=== PATIENT | female | born 1960 | race Caucasian/White ===

== ENCOUNTER 2017-03-22 11:58 | Inpatient (IN) | payer OTHER ==
[2017-03-22] VITALS (11 sets, daily range): BP systolic 138–196; BP diastolic 72–113; PULSE 62–78; RESP 16–23; TEMP 97.5–97.9; O2SAT 96–100
[~2017-03-22] VITALS: Ht 172.7 cm; Wt 74.2 kg
--- NOTE | 2017-03-22 12:24 | PD ---
HPI Chief Complaint: Headache Time Seen by Provider: 12:23 Travel History International Travel<30 days: No Contact w/Intl Traveler<30days: No Traveled to known affect area: No History of Present Illness HPI 56-year-old female came to the emergency room with history of headache that is progressively worsening for past 1 week. Patient was initially taking Excedrin Migraine for the headache but when she realized that this doesn't feel normal she decided to go to her primary care. There was an MRI ordered by the primary care which was done this morning and the radiologist called the primary care to let her know that there is a large mass in her left hemisphere with associated edema and midline shift. She was sent to the emergency room because of this. Patient denies any unilateral weakness or focal deficits. She otherwise claims to be a healthy person. [facility] Past Medical History Narrative Medical List of her past medical, surgical, social and family history is reviewed from the nursing note. Social History Tobacco Use: Yes Allergies-Medications (Allergen,Severity, Reaction): Coded Allergies: No Known Allergies (Verified Allergy, Unknown, 03/22/17) Comments No known drug allergies. Reported Meds & Prescriptions Reported Meds & Active Scripts Active No Active Prescriptions or Reported Medications Narrative Medication List of her home medications reviewed from the nursing note. Review of Systems Except as stated in HPI: all other systems reviewed are Neg Neurologic: Positive: Headache Physical Exam Narrative GENERAL: Awake, alert, anxious, moderate distress SKIN: Focused skin assessment warm/dry. HEAD: Atraumatic. Normocephalic. EYES: Pupils equal and round. No scleral icterus. No injection or drainage. ENT: No nasal bleeding or discharge. Mucous membranes pink and moist. NECK: Trachea midline. No JVD. CARDIOVASCULAR: Regular rate and rhythm. No murmur appreciated. RESPIRATORY: No accessory muscle use. Clear to auscultation. Breath sounds equal bilaterally. GASTROINTESTINAL: Abdomen soft, non-tender, nondistended. Hepatic and splenic margins not palpable. MUSCULOSKELETAL: No obvious deformities. No clubbing. No cyanosis. No edema. NEUROLOGICAL: Awake and alert. No obvious cranial nerve deficits. Motor grossly within normal limits. Normal speech. PSYCHIATRIC: Appropriate mood and affect; insight and judgment normal. Data Data Last Documented VS Vital Signs Date Time Temp Pulse Resp B/P (MAP) Pulse Ox O2 Delivery O2 Flow Rate FiO2 03/22/17 14:10 97.8 70 16 150/81 (104) 98 Room Air Orders Orders Complete Blood Count With Diff (03/22/17 12:26) Basic Metabolic Panel (Bmp) (03/22/17 12:26) Prothrombin Time / Inr (Pt) (03/22/17 12:26) Type And Screen (03/22/17 12:26) Dexamethasone Inj (Decadron Inj) (03/22/17 12:30) Application Support / Telemetry [id number] (03/22/17 12:26) Consult Neurosurgery (03/22/17 ) (Hub Use Only)Inp Phy Cons/Ref (03/22/17 ) Admit Order (Ed Use Only) (03/22/17 14:09) Labs Laboratory Tests Test 03/22/17 12:30 White Blood Count 6.8 TH/MM3 Red Blood Count 4.61 MIL/MM3 Hemoglobin 14.1 GM/DL Hematocrit 41.9 % Mean Corpuscular Volume 90.7 FL Mean Corpuscular Hemoglobin 30.6 PG Mean Corpuscular Hemoglobin Concent 33.7 % Red Cell Distribution Width 13.3 % Platelet Count 322 TH/MM3 Mean Platelet Volume 8.1 FL Neutrophils (%) (Auto) 69.9 % Lymphocytes (%) (Auto) 22.1 % Monocytes (%) (Auto) 7.2 % Eosinophils (%) (Auto) 0.3 % Basophils (%) (Auto) 0.5 % Neutrophils # (Auto) 4.8 TH/MM3 Lymphocytes # (Auto) 1.5 TH/MM3 Monocytes # (Auto) 0.5 TH/MM3 Eosinophils # (Auto) 0.0 TH/MM3 Basophils # (Auto) 0.0 TH/MM3 CBC Comment DIFF FINAL Differential Comment Prothrombin Time 10.7 SEC Prothromb Time International Ratio 1.1 RATIO Blood Urea Nitrogen 15 MG/DL Creatinine 0.85 MG/DL Random Glucose 88 MG/DL Calcium Level 9.4 MG/DL Sodium Level 138 MEQ/L Potassium Level 4.0 MEQ/L Chloride Level 103 MEQ/L Carbon Dioxide Level 25.5 MEQ/L Anion Gap 10 MEQ/L Estimat Glomerular Filtration Rate 69 ML/MIN MDM Medical Decision Making Medical Screen Exam Complete: Yes Emergency Medical Condition: Yes Medical Record Reviewed: Yes Interpretation(s) Twelve-lead EKG was reviewed by me. Normal sinus rhythm, normal axis, nonspecific ST-T wave changes. Heart rate of 62 bpm. Differential Diagnosis Intracranial mass Narrative Course 1:38 PM I looked at her MRI report after patient arrived to the ER based on which I called Dr. Winston who is on-call for neurosurgery. He was in the OR. He wanted his PA to be called. She has been contacted as well. Neither of them has seen the patient yet. My understanding is that they're on their way to come and see the patient. Blood test results of back and within acceptable limits. Patient will require admission once they have evaluated her. 2:[address] Winston came downstairs and saw the patient. He wants the patient to be admitted to [facility]. I discussed the case with Dr. Holland from [facility] who will admit the patient. Procedures EKG Prior to Arrival: No Physician Communication Physician Communication Dr. Winston, Dr. Holland Diagnosis Primary Impression: Intracranial mass Additional Impression: Headache Qualified Codes: R51 - Headache Admitting Information Admitting Physician Requests: Admit Scripts No Active Prescriptions or Reported Meds Kadie Harris MD Mar 22, 2017 12:24
[2017-03-22] MEDS ORDERED: DEXAMETHASONE SOD PHOS 20 MG/5 ML VIAL IV PUSH ONE (12:30)
[2017-03-22 12:55] LABS: AUTOMATED NEUTROPHIL # 4.8 TH/MM3 (1.8-7.7); BASOPHIL % 0.5 % (0.0-2.0); EOSINOPHIL % 0.3 % (0.0-4.0); HEMATOCRIT 41.9 % (35.0-46.0); HEMOGLOBIN 14.1 GM/DL (11.6-15.3); LYMPH % 22.1 % (9.0-44.0); LYMPHOCYTE # 1.5 TH/MM3 (1.0-4.8); MEAN CELL VOLUME 90.7 FL (80.0-100.0); MEAN CORPUSCULAR HEMOGLOBIN 30.6 PG (27.0-34.0); MEAN CORPUSCULAR HGB CONC 33.7 % (32.0-36.0); MEAN PLATELET VOLUME 8.1 FL (7.0-11.0); MONO % 7.2 % (0.0-8.0); MONOCYTE # 0.5 TH/MM3 (0-0.9); NEUT % 69.9 % (16.0-70.0); PLATELET COUNT 322 TH/MM3 (150-450); RED BLOOD COUNT 4.61 MIL/MM3 (4.00-5.30); RED CELL DISTRIBUTION WIDTH 13.3 % (11.6-17.2); WHITE BLOOD COUNT 6.8 TH/MM3 (4.0-11.0)
[2017-03-22 13:05] LABS: BICARBONATE 25.5 MEQ/L (21.0-32.0); CALCIUM 9.4 MG/DL (8.5-10.1); CREATININE 0.85 MG/DL (0.50-1.00); INTERNATIONAL NORMALIZED RATIO 1.1 RATIO; PROTHROMBIN TIME - PATIENT 10.7 SEC (9.8-11.6)
--- NOTE | 2017-03-22 13:58 | PD.CONS ---
(Singh Winston MD) HPI Consult Requested By Primary Care Physician Unknown (Singh Winston MD) Service Neurosurgery Reason for Consult Brain Mass History of Present Illness Ms. Cloud is a 56-year-old female who was sent to [place] the ED for brain mass. Apparently she has had progressive worsening of headaches with associated nausea. She underwent a CT head at [facility] which shows a mass in the left parieto-occipital low to mid convexity region with moderate vasogenic edema extending into the high convexity frontal and parietal regions and anteriorly into the temporal region. There is moderate global mass effect present with significant effacement and displacement of left lateral ventricle and about 6 mm of subfalcine midline shift. Unfortunately she is unable to undergo an MRI study due to her pacemaker. She reports no prior history of known tumors or cancers and is quite healthy otherwise. (Kacy Vargas) Review of Systems Constitutional: DENIES: Fever, Chills Gastrointestinal: COMPLAINS OF: Nausea Genitourinary: DENIES: Urinary incontinence Neurologic: COMPLAINS OF: Headache, DENIES: Seizures (Kacy Vargas) Past Family Social History Allergies: Coded Allergies: No Known Allergies (Verified Allergy, Unknown, 03/22/17) Reported Medications Current Medications Dexamethasone Sodium Phosphate (Decadron Inj) 10 mg ONCE ONCE IV PUSH Last administered on 03/22/17at 12:33; Start 03/22/17 at 12:30; Stop 03/22/17 at 12:31 ; Status DC Potassium Chloride/Sodium Chloride 1,000 ml @ 100 mls/hr Q10H IV Last administered on 03/22/17at 14:53; Start 03/22/17 at 14:13 Sodium Chloride (NS Flush) 2 ml UNSCH PRN IV FLUSH FLUSH AFTER USING IV ACCESS ; Start 03/22/17 at 14:15 Sodium Chloride (NS Flush) 2 ml BID IV FLUSH ; Start 03/22/17 at 21:00 Acetaminophen (Tylenol) 650 mg Q6H PRN PO FEVER >101F; Start 03/22/17 at 14:15 Acetaminophen/ Hydrocodone Bitart (Davis 5-325 Mg) 1 tab Q4H PRN PO PAIN SCALE 1 TO 5; Start 03/22/17 at 14:15 Morphine Sulfate (Morphine Inj) 2 mg Q2H PRN IV PUSH PAIN SCALE 6 TO 10 Last administered on 03/22/17at 14:53; Start 03/22/17 at 14:15 Famotidine (Pepcid) 20 mg Q12HR PO Last administered on 03/22/17at 14:53; Start 03/22/17 at 14:15 Ondansetron HCl (Zofran Inj) 4 mg Q6H PRN IV PUSH NAUSEA OR VOMITING Last administered on 03/22/17at 15:24; Start 03/22/17 at 14:15 Zolpidem Tartrate (Ambien) 5 mg HS PRN PO INSOMNIA; Start 03/22/17 at 14:15 Albuterol/ Ipratropium (Duoneb Neb) 1 ampule Q2HR NEB PRN INH WHEEZING; Start 03/22/17 at 14:15 Miscellaneous Information 1 Q361D XX Last administered on 03/22/17at 16:54; Start 03/22/17 at 14:15 Chlorhexidine Gluconate (Chlorhexidine 2% Cloth) 3 pack Taper DAILY@04 TOP ; Start 03/23/17 at 04:00; Stop 03/19/18 at 03:59 Chlorhexidine Gluconate (Chlorhexidine 2% Cloth) 3 pack UNSCH PRN TOP HYGIENIC CARE; Start 03/22/17 at 14:15 Senna/Docusate Sodium (Melissa-Colace) 1 tab BID PO ; Start 03/22/17 at 21:00 Magnesium Hydroxide (Milk Of Magnesia Liq) 30 ml Q12H PRN PO Mild constipation ; Start 03/22/17 at 14:15 Sennosides (Senokot) 17.2 mg Q12H PRN PO Moderate constipation; Start 03/22/17 at 14:15 Bisacodyl (Dulcolax Supp) 10 mg DAILY PRN RECTAL SEVERE CONSITIPATION; Start at 14:15 Lactulose (Lactulose Liq) 30 ml DAILY PRN PO SEVERE CONSITIPATION; Start at 14:15 Levetriacetam 500 mg/Sodium Chloride 105 ml @ 420 mls/hr Q12H IV Last administered on 03/22/17at 15:24; Start 03/22/17 at 15:00 Mannitol (Mannitol Inj) 25 gm Q6HR IV ; Start 03/22/17 at 18:00 Dexamethasone Sodium Phosphate (Decadron Inj) 4 mg Q6HR IV PUSH ; Start at 18:00 (Singh Winston MD) Past Medical History Remote history of syncope, underwent pacemaker Past Surgical History Pacemaker Active Ordered Medications Current Medications Medications (Trade) Dose Ordered Sig/Rebecca Route PRN Reason Start Time Stop Time Status Last Admin Dose Admin Potassium Chloride/Sodium Chloride 1,000 ml @ 100 mls/hr Q10H IV 03/22/17 14:13 03/22/17 14:53 Sodium Chloride (NS Flush) 2 ml UNSCH PRN IV FLUSH FLUSH AFTER USING IV ACCESS 03/22/17 14:15 Sodium Chloride (NS Flush) 2 ml BID IV FLUSH 03/22/17 21:00 Acetaminophen (Tylenol) 650 mg Q6H PRN PO FEVER >101F 03/22/17 14:15 Acetaminophen/ Hydrocodone Bitart (Davis 5-325 Mg) 1 tab Q4H PRN PO PAIN SCALE 1 TO 5 03/22/17 14:15 Morphine Sulfate (Morphine Inj) 2 mg Q2H PRN IV PUSH PAIN SCALE 6 TO 10 03/22/17 14:15 03/22/17 14:53 Famotidine (Pepcid) 20 mg Q12HR PO 03/22/17 14:15 03/22/17 14:53 Ondansetron HCl (Zofran Inj) 4 mg Q6H PRN IV PUSH NAUSEA OR VOMITING 03/22/17 14:15 03/22/17 15:24 Zolpidem Tartrate (Ambien) 5 mg HS PRN PO INSOMNIA 03/22/17 14:15 Albuterol/ Ipratropium (Duoneb Neb) 1 ampule Q2HR NEB PRN INH WHEEZING 03/22/17 14:15 Miscellaneous Information 1 Q361D XX 03/22/17 14:15 03/22/17 16:54 Chlorhexidine Gluconate (Chlorhexidine 2% Cloth) 3 pack Taper DAILY@04 TOP 03/23/17 04:00 03/19/18 03:59 Chlorhexidine Gluconate (Chlorhexidine 2% Cloth) 3 pack UNSCH PRN TOP HYGIENIC CARE 03/22/17 14:15 Senna/Docusate Sodium (Melissa-Colace) 1 tab BID PO 03/22/17 21:00 Magnesium Hydroxide (Milk Of Magnesia Liq) 30 ml Q12H PRN PO Mild constipation 03/22/17 14:15 Sennosides (Senokot) 17.2 mg Q12H PRN PO Moderate constipation 03/22/17 14:15 Bisacodyl (Dulcolax Supp) 10 mg DAILY PRN RECTAL SEVERE CONSITIPATION 03/22/17 14:15 Lactulose (Lactulose Liq) 30 ml DAILY PRN PO SEVERE CONSITIPATION 03/22/17 14:15 Levetriacetam 500 mg/Sodium Chloride 105 ml @ 420 mls/hr Q12H IV 03/22/17 15:00 03/22/17 15:24 Mannitol (Mannitol Inj) 25 gm Q6HR IV 03/22/17 18:00 Dexamethasone Sodium Phosphate (Decadron Inj) 4 mg Q6HR IV PUSH 03/22/17 18:00 Social History denies tobacco, etoh, or illicit drug use (Kacy Vargas) Physical Exam Vital Signs Vital Signs Date Time Temp Pulse Resp B/P (MAP) Pulse Ox O2 Delivery O2 Flow Rate FiO2 03/22/17 12:47 97.9 62 16 138/97 (111) 100 Room Air 03/22/17 12:29 97.8 67 16 181/113 (135) 100 Room Air 03/22/17 12:26 69 16 100 Room Air 03/22/17 12:00 97.5 64 18 196/112 (140) 100 Physical Exam The patient is alert, awake and oriented to time, place and person. Speech is fluent. Higher cognitive functions are normal. Cranial nerve examination demonstrates the pupils to be equal, round, and reactive to light. Extra-ocular movements are intact. Facial motor and sensory function are normal and symmetrical. Gross hearing is intact, bilaterally. The uvula is midline and elevates symmetrically with the soft palate. Sternocleidomastoid and trapezius muscles have normal and symmetrical strength. Other cranial nerves are intact. Neck is soft and supple. Cervical spine has a full range of motion in anterior flexion, extension, lateral bending, and rotation without pain. There is no tenderness to palpation to the spinous processes or paraspinal muscles. Muscle testing reveals normal bulk and tone overall without rigidity, spasticity , fasciculations, or atrophy. Muscle strength is 5/5 in all muscle groups of both upper extremities including deltoid, biceps, triceps, brachioradialis, wrist extension and cellar packer. In the lower extremities, strength is 5/5 in both iliopsoas, quadriceps, hamstrings, plantar flexion, dorsiflexion, and extensor hallicus longus. Sensory examination is intact to light touch and sharp/dull discrimination in both the upper and lower extremities, symmetrically. Deep tendon reflexes are 2+ and symmetrical in the biceps, triceps, and brachioradialis, bilaterally, in the upper extremities. In the lower extremities , the patellar and Achilles are 2+, bilaterally. There is a bilateral plantar flexion response. Hoffmanns sign is negative. There is no clonus or other abnormal reflexes noted. Cerebellar examination is intact to [id number] test, rapid rhythmic alternating motion. There is no dysmetria, dysdiadochokinesia, truncal ataxia, or tremor. Lungs: clear, nonlabored breathing, no wheezing Heart: S1, S2 Skin: warm and dry, no cyanosis. Laboratory Laboratory Tests Test 03/22/17 12:30 White Blood Count 6.8 Red Blood Count 4.61 Hemoglobin 14.1 Hematocrit 41.9 Mean Corpuscular Volume 90.7 Mean Corpuscular Hemoglobin 30.6 Mean Corpuscular Hemoglobin Concent 33.7 Red Cell Distribution Width 13.3 Platelet Count 322 Mean Platelet Volume 8.1 Neutrophils (%) (Auto) 69.9 Lymphocytes (%) (Auto) 22.1 Monocytes (%) (Auto) 7.2 Eosinophils (%) (Auto) 0.3 Basophils (%) (Auto) 0.5 Neutrophils # (Auto) 4.8 Lymphocytes # (Auto) 1.5 Monocytes # (Auto) 0.5 Eosinophils # (Auto) 0.0 Basophils # (Auto) 0.0 CBC Comment DIFF FINAL Differential Comment Prothrombin Time 10.7 Prothromb Time International Ratio 1.1 Blood Urea Nitrogen 15 Creatinine 0.85 Random Glucose 88 Calcium Level 9.4 Sodium Level 138 Potassium Level 4.0 Chloride Level 103 Carbon Dioxide Level 25.5 Anion Gap 10 Estimat Glomerular Filtration Rate 69 (Singh Winston MD) Result Diagram: 03/22/17 1230 03/22/17 1230 Imaging Last 48 hours Impressions Chest X-Ray 03/22/17 0000 Signed Impressions: Service Date/Time: Wednesday, March 22, 2017 14:39 - CONCLUSION: No acute disease. Kelby Overton MD (Singh Winston MD) Attending Statement I reviewed Ms Cloud clinical and radiological findings. Unfortunately she underwent a CT without contrast which is not an appropriate workup. I recommend she undergoes a CT of the brain with contrast. She is unable to undergo an MRI due to the presence of a pacemaker Have discussed with her and her family the differential diagnosis. I suspect she has a neoplastic process. Depending on the CT with contrast, she may need a CT of the chest abdomen and pelvis if she has an intra-axial mass. In all likelihood she will need additional diagnoses with a stereotactic guided biopsy versus a craniotomy. I would defer further recommendations upon the completion of her CT I ordered decadron 4mg every 6 hrs. In addition I have ordered Mannitol for the vasogenic edema I have ordered serial serum osmolality Pulmonary. aggressive pulmonary toilette, nasotracheal suction, and breathing treatments with nebulizers. Daily PT and OT Nutrition. Tolerating Oral diet Renal. monitor closely urine output, BUN and creatinine Endocrine. Monitor serial Acu checks and SSI as needed in detail ID monitor for signs of infection Protonix for stress ulcer prophylaxis Messi hose and SCD's for DVT prophylaxis Further recommendations will be provided depending on the patient's clinical evaluation and follow up studies. (Singh Winston MD) Singh Winston MD Mar 22, 2017 13:58 Kacy Vargas Mar 22, 2017 17:10
[2017-03-22] MEDS ORDERED: SODIUM CHLORIDE 0.9% FLUSH 10 ML FLUSH IV FLUSH PRN (14:15)
[2017-03-22] MEDS ORDERED: MAGNESIUM HYDROXIDE SUSP 30 ML CUP PO PRN (14:15)
[2017-03-22] MEDS ORDERED: ZOLPIDEM TARTRATE 5 MG TAB PO PRN (14:15)
[2017-03-22] MEDS ORDERED: RESP: ALBUTEROL 2.5 MG/IPRATROPIUM 0.5 MG NEB (PRN) INH (14:15)
[2017-03-22] MEDS ORDERED: SENNOSIDES 8.6 MG TAB PO PRN (14:15)
[2017-03-22] MEDS ORDERED: ACETAMINOPHEN 325 MG TAB PO PRN (14:15)
[2017-03-22] MEDS ORDERED: CHLORHEXIDINE GLUCONATE 2 % 1 PACK (2 CLOTHS) TOP PRN (14:15)
[2017-03-22] MEDS ORDERED: MISCELLANEOUS NURSING INFORMATION XX SCH (14:15)
[2017-03-22] MEDS ORDERED: BISACODYL 10 MG SUPP RECTAL PRN (14:15)
[2017-03-22] MEDS: MORPHINE SULFATE 4 MG/ML INJ IV PUSH PRN (14:53)
[2017-03-22] MEDS: FAMOTIDINE 20 MG TAB PO SCH ×2 (14:53→20:26)
[2017-03-22] MEDS: NS + KCL 20 MEQ INJ 1,000 ML IV SCH (14:53)
[2017-03-22] MEDS: levETIRAcetam INJ 500 MG in SODIUM CHLORIDE 0.9% INJ 100 ML IV SCH (15:24)
[2017-03-22] MEDS: ONDANSETRON HCL 4 MG/2 ML VIAL IV PUSH PRN (15:24)
--- NOTE | 2017-03-22 16:04 | RADRPT ---
EXAM DATE/TIME: 03/22/2017 14:39 [facility] COMPARISON: No previous studies available for comparison. INDICATIONS : Intracranial mass findings. Metastases. MEDICAL HISTORY : None. SURGICAL HISTORY : Pacemaker. ENCOUNTER: Initial ACUITY: 1 day PAIN SCORE: 0/10 LOCATION: Bilateral chest FINDINGS: A single view of the chest demonstrates the lungs to be symmetrically aerated without evidence of mas s, infiltrate or effusion. The cardiomediastinal contours are unremarkable. Left-sided pacemaker wit h 2 intact leads. Osseous structures are intact. CONCLUSION: No acute disease. Kelby Overton MD on March 22, 2017 at 16:01 Board Certified Radiologist. This report was verified electronically.
--- NOTE | 2017-03-22 17:48 | HHI.HP ---
HPI Service Critical Care Medicine Primary Care Physician Dennise Robb MD Admission Diagnosis intracranial mass Diagnosis: Chief Complaint: Headache, brain mass Travel History International Travel<30 Days: No Contact w/Intl Traveler <30 Da: No Traveled to Known Affected Are: No History of Present Illness 56-year-old female came to the emergency room with history of headache that is progressively worsening for past 1 week. Patient was initially taking Excedrin Migraine for the headache but when she realized that this doesn't feel normal she decided to go to her primary care. There was an MRI ordered by the primary care which was done this morning and the radiologist called the primary care to let her know that there is a large mass in her left hemisphere with associated edema and midline shift. She was sent to the emergency room because of this. Patient denies any unilateral weakness or focal deficits. She otherwise claims to be a healthy person. Dr. Winston from neurosurgery was contacted and requested patient be admitted by critical care medicine service. Patient was evaluated by Dr. Winston in the ER. I accepted the patient for admission and evaluated the patient in the ER subsequently. She was resting in the ER stretcher at that time complaining of some headache. She also tells me that she has had problems with her vision over the last 1 week with blurring especially with the right eye. History PFSH Past Medical History Narrative Medical Patient denies any major medical problems previously except for the fact that she had episodes of passing out while she was in [facility] in August 2016 and was taken to the hospital where she had a pacemaker placed. Allergies-Medications (Allergen,Severity, Reaction): Coded Allergies: No Known Allergies (Verified Allergy, Unknown, 03/22/17) Comments No known drug allergies. Reported Meds & Prescriptions Reported Meds & Active Scripts Active No Active Prescriptions or Reported Medications Narrative Medication List of her home medications reviewed from the nursing note. ROS Review of Systems Except as stated in HPI: all other systems reviewed are Neg Neurologic: Positive: Headache, blurring of vision for week Physical Exam Vital Signs Vital Signs Date Time Temp Pulse Resp B/P (MAP) Pulse Ox O2 Delivery O2 Flow Rate FiO2 03/22/17 16:05 97.8 74 16 148/85 (106) 99 03/22/17 16:00 77 03/22/17 15:00 97.9 75 16 150/92 (111) 99 Room Air 03/22/17 14:58 16 03/22/17 14:10 97.8 70 16 150/81 (104) 98 Room Air 03/22/17 12:47 97.9 62 16 138/97 (111) 100 Room Air 03/22/17 12:29 97.8 67 16 181/113 (135) 100 Room Air 03/22/17 12:26 69 16 100 Room Air 03/22/17 12:00 97.5 64 18 196/112 (140) 100 Physical Exam Physical Exam Narrative GENERAL: Awake, alert, anxious, moderate distress SKIN: Focused skin assessment warm/dry. HEAD: Atraumatic. Normocephalic. EYES: Pupils equal and round. No scleral icterus. No injection or drainage. ENT: No nasal bleeding or discharge. Mucous membranes pink and moist. NECK: Trachea midline. No JVD. CARDIOVASCULAR: Regular rate and rhythm. No murmur appreciated. RESPIRATORY: No accessory muscle use. Clear to auscultation. Breath sounds equal bilaterally. GASTROINTESTINAL: Abdomen soft, non-tender, nondistended. Hepatic and splenic margins not palpable. MUSCULOSKELETAL: No obvious deformities. No clubbing. No cyanosis. No edema. NEUROLOGICAL: Awake and alert. Blurring of vision involving right eye. Pupils 4 mm bilaterally reacting actively to light. Motor grossly within normal limits. Normal speech. PSYCHIATRIC: Appropriate mood and affect; insight and judgment normal. Laboratory Laboratory Tests Test 03/22/17 12:30 03/22/17 17:10 White Blood Count 6.8 Red Blood Count 4.61 Hemoglobin 14.1 Hematocrit 41.9 Mean Corpuscular Volume 90.7 Mean Corpuscular Hemoglobin 30.6 Mean Corpuscular Hemoglobin Concent 33.7 Red Cell Distribution Width 13.3 Platelet Count 322 Mean Platelet Volume 8.1 Neutrophils (%) (Auto) 69.9 Lymphocytes (%) (Auto) 22.1 Monocytes (%) (Auto) 7.2 Eosinophils (%) (Auto) 0.3 Basophils (%) (Auto) 0.5 Neutrophils # (Auto) 4.8 Lymphocytes # (Auto) 1.5 Monocytes # (Auto) 0.5 Eosinophils # (Auto) 0.0 Basophils # (Auto) 0.0 CBC Comment DIFF FINAL Differential Comment Prothrombin Time 10.7 Prothromb Time International Ratio 1.1 Blood Urea Nitrogen 15 Creatinine 0.85 Random Glucose 88 Calcium Level 9.4 Sodium Level 138 Potassium Level 4.0 Chloride Level 103 Carbon Dioxide Level 25.5 Anion Gap 10 Estimat Glomerular Filtration Rate 69 Result Diagram: 03/22/17 1230 03/22/17 1230 Imaging Last Impressions Chest X-Ray 03/22/17 0000 Signed Impressions: Service Date/Time: Wednesday, March 22, 2017 14:39 - CONCLUSION: No acute disease. MD Lucas Page VTE Risk Assessment Capjuan j VTE Risk Assessment: Mod/High Risk (score >= 2) VTE Pharm Contraindication: Intracranial lesions Caprini Risk Assessment Model Point Value = 1 Point Value = 2 Point Value = 3 Point Value = 5 Age 41-60 Minor surgery BMI > 25 kg/m2 Swollen legs Varicose veins or History of unexplained or recurrent spontaneous Oral contraceptives or hormone replacement Sepsis (< 1 month) Serious lung disease, including pneumonia (< 1 month) Abnormal pulmonary function Acute myocardial infarction Congestive heart failure (< 1 month) History of inflammatory bowel disease Medical patient at bed rest Age 61-74 Arthroscopic surgery Major open surgery (> 45 min) Laparoscopic surgery (> 45 min) Malignancy Confined to bed (> 72 hours) Immobilizing plaster cast Central venous access Age >= 75 History of VTE Family history of VTE Factor V Leiden Prothrombin [id number] Lupus anticoagulant Anticardiolipin antibodies Elevated serum homocysteine Heparin-induced thrombocytopenia Other congenital or acquired thrombophilia Stroke (< 1 month) Elective arthroplasty Hip, pelvis, or leg fracture Acute spinal cord injury (< 1 month) Prophylaxis Regimen Total Risk Factor Score Risk Level Prophylaxis Regimen 0-1 Low Early ambulation 2 Moderate Order ONE of the following: *Sequential Compression Device (SCD) *Heparin 5000 units SQ BID 3-4 Higher Order ONE of the following medications: *Heparin 5000 units SQ TID *Enoxaparin/Lovenox 40 mg SQ daily (WT < 150 kg, CrCl > 30 mL/min) *Enoxaparin/Lovenox 30 mg SQ daily (WT < 150 kg, CrCl > 10-29 mL/min) *Enoxaparin/Lovenox 30 mg SQ BID (WT < 150 kg, CrCl > 30 mL/min) AND/OR *Sequential Compression Device (SCD) 5 or more Highest Order ONE of the following medications: *Heparin 5000 units SQ TID (Preferred with Epidurals) *Enoxaparin/Lovenox 40 mg SQ daily (WT < 150 kg, CrCl > 30 mL/min) *Enoxaparin/Lovenox 30 mg SQ daily (WT < 150 kg, CrCl > 10-29 mL/min) *Enoxaparin/Lovenox 30 mg SQ BID (WT < 150 kg, CrCl > 30 mL/min) AND *Sequential Compression Device (SCD) Assessment and Plan Assessment and Plan 56-year-old female with: 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 Neurosurgery consulted and patient has already been evaluated by Dr. Winston. Discussed with Dr. Winston personally. Plan for mannitol and Decadron every 6 hourly. Keppra for seizure prophylaxis. Dr. Winston planning brain biopsy following repeat CT head with IV contrast. Patient cannot get MRI brain as she has a pacemaker in place. Cardiovascular: IV hydration, watch for hypotension. Hydralazine as necessary for SBP greater than 1 60 mmHg. Pulmonary: On room air currently. Protecting airway. Bronchodilators as needed. GI/liver: By mouth diet as tolerated Renal/: IV hydration, monitor and replete electro lites, follow BUN/ creatinine. ID: No indication for antibiotics at this time. Heme: Follow CBC Endocrine: SSI for glycemic control as needed Prophylaxis: Pepcid, SCDs. No subcutaneous heparin in view of intracranial mass till cleared by neurosurgery. Discussed with Dr. Winston, discussed with patient's family at bedside. Condition critical with high risk for deterioration due to cerebral edema. Time spent on critical care excluding procedures 45 minutes Jose C Holland MD Mar 22, 2017 17:48
[2017-03-22] MEDS: ACETAMINOPHEN/HYDROcodone 325 MG/5 MG TAB PO PRN (18:19)
[2017-03-22] MEDS: DEXAMETHASONE SOD PHOS 4 MG/ML VIAL IV PUSH SCH (18:20)
[2017-03-22] MEDS: CHLORHEXIDINE GLUCONATE 2 % 1 PACK (2 CLOTHS) TOP SCH (19:21)
[2017-03-22] MEDS: MANNITOL 12.5 GM/50 ML VIAL IV SCH (19:29)
[2017-03-22] MEDS: DOCUSATE SODIUM 50 MG/SENNA 8.6 MG TAB PO SCH (20:26)
[2017-03-22] MEDS: SODIUM CHLORIDE 0.9% FLUSH 10 ML FLUSH IV FLUSH SCH (20:26)
[2017-03-22] MEDS ORDERED: IOHEXOL 350 MG/ML 10 ML VIAL (for RAD DIAG) IVCONTRAST ONE (20:32)
--- NOTE | 2017-03-22 21:12 | RADRPT ---
EXAM DATE/TIME: 03/22/2017 20:11 [facility] COMPARISON: No previous studies available for comparison. INDICATIONS : Mass. IV CONTRAST: 75 cc Omnipaque 350 (iohexol) IV RADIATION DOSE: 17.88 CTDIvol (mGy) MEDICAL HISTORY : Cardiovascular disease. SURGICAL HISTORY : Pacemaker. ENCOUNTER: Initial ACUITY: 1 day PAIN SCALE: 10/10 LOCATION: cranial TECHNIQUE: Multiple contiguous axial images were obtained of the head. Using automated exposure control and adj ustment of the mA and/or kV according to patient size, radiation dose was kept as low as reasonably a chievable to obtain optimal diagnostic quality images. DICOM format image data is available electro nically for review and comparison. FINDINGS: CT Brain Stealth with contrast was performed. The ill-defined enhancing lesion within the left tempor al occipital lobe and posterior parietal region is noted. Extensive vasogenic edema is noted througho ut the left temporal, occipital and posterior parietal region. There is subfalcine herniation to the right measuring 7 mm. CONCLUSION: CT Brain Stealth examination was performed and demonstrates the ill-defined enhancing lesion within t he left temporal occipital and posterior parietal region with extensive vasogenic edema and 7 mm of s ubfalcine herniation to the right. Harrison Gaspar MD on March 22, 2017 at 21:06 Board Certified Radiologist. This report was verified electronically.
[2017-03-23] VITALS (13 sets, daily range): BP systolic 101–138; BP diastolic 57–75; PULSE 54–81; RESP 20–27; TEMP 97.4–97.7; O2SAT 95–99
[2017-03-23] MEDS: MORPHINE SULFATE 4 MG/ML INJ IV PUSH PRN ×4 (02:50→20:24)
[2017-03-23] MEDS: levETIRAcetam INJ 500 MG in SODIUM CHLORIDE 0.9% INJ 100 ML IV SCH ×2 (02:50→15:09)
[2017-03-23] MEDS: NS + KCL 20 MEQ INJ 1,000 ML IV SCH ×3 (02:51→20:23)
[2017-03-23] MEDS: ONDANSETRON HCL 4 MG/2 ML VIAL IV PUSH PRN ×3 (03:25→20:23)
[2017-03-23] MEDS: oxyCODONE/ACETAMINOPHEN 10 MG/325 MG TAB PO PRN ×2 (03:41→11:46)
[2017-03-23 03:54] LABS: AUTOMATED NEUTROPHIL # 5.3 TH/MM3 (1.8-7.7); BASOPHIL % 0.2 % (0.0-2.0); HEMATOCRIT 40.7 % (35.0-46.0); HEMOGLOBIN 13.7 GM/DL (11.6-15.3); LYMPHOCYTE # 0.6 TH/MM3 (1.0-4.8); MEAN CELL VOLUME 90.4 FL (80.0-100.0); MEAN CORPUSCULAR HEMOGLOBIN 30.5 PG (27.0-34.0); MEAN CORPUSCULAR HGB CONC 33.7 % (32.0-36.0); MEAN PLATELET VOLUME 8.5 FL (7.0-11.0); MONO % 1.6 % (0.0-8.0); MONOCYTE # 0.1 TH/MM3 (0-0.9); NEUT % 88.2 % (16.0-70.0); PLATELET COUNT 336 TH/MM3 (150-450); RED BLOOD COUNT 4.51 MIL/MM3 (4.00-5.30); RED CELL DISTRIBUTION WIDTH 13.3 % (11.6-17.2)
[2017-03-23 04:01] LABS: ALBUMIN 3.4 GM/DL (3.4-5.0); ALT (GPT) 18 U/L (10-53); AST (GOT) 11 U/L (15-37); BICARBONATE 25.8 MEQ/L (21.0-32.0); CALCIUM 9.1 MG/DL (8.5-10.1); CHLORIDE 105 MEQ/L (98-107); CREATININE 0.76 MG/DL (0.50-1.00); GLOMERULAR FILTRATION RATE 78 ML/MIN (>89); GLUCOSE,RANDOM 134 MG/DL (74-106); MAGNESIUM 2.2 MG/DL (1.5-2.5); PHOSPHORUS 4.1 MG/DL (2.5-4.9); SODIUM (NA) 139 MEQ/L (136-145)
[2017-03-23 04:07] LABS: ALKALINE PHOSPHATASE 86 U/L (45-117); BLOOD UREA NITROGEN 17 MG/DL (7-18); TOTAL BILIRUBIN ADULT 0.3 MG/DL (0.2-1.0); TOTAL PROTEIN 7.4 GM/DL (6.4-8.2)
[2017-03-23] MEDS: DEXAMETHASONE SOD PHOS 4 MG/ML VIAL IV PUSH SCH ×4 (06:51→17:51)
--- NOTE | 2017-03-23 09:25 | EKG ---
Date Performed: 03/22/2017 Time Performed: 14:53:20 PTAGE: 56 years EKG: Sinus rhythm NONSPECIFIC ST & T-WAVE ABNORMALITY BORDERLINE ECG NO PREVIOUS TRACING DOCTOR: Casey Sewell Interpretating Date/Time 03/23/2017 09:23:08
[2017-03-23] MEDS: SODIUM CHLORIDE 0.9% FLUSH 10 ML FLUSH IV FLUSH SCH ×2 (09:46→20:23)
[2017-03-23] MEDS: MANNITOL 12.5 GM/50 ML VIAL IV SCH ×4 (09:46→20:01)
[2017-03-23] MEDS: FAMOTIDINE 20 MG TAB PO SCH ×2 (09:47→20:23)
[2017-03-23] MEDS: DOCUSATE SODIUM 50 MG/SENNA 8.6 MG TAB PO SCH ×2 (09:47→20:23)
--- NOTE | 2017-03-23 12:52 | HHI.NSPN ---
(Kacy Vargas) Note Status Status: Progress Note (Kacy Vargas) Status: Progress Note (Singh Winston MD) Interval History Interval History Ms. Cloud is a 56-year-old female who was sent to [facility] the ED for brain mass. Apparently she has had progressive worsening of headaches with associated nausea. She underwent a CT head at [facility] which shows a mass in the left parieto-occipital low to mid convexity region with moderate vasogenic edema extending into the high convexity frontal and parietal regions and anteriorly into the temporal region. There is moderate global mass effect present with significant effacement and displacement of left lateral ventricle and about 6 mm of subfalcine midline shift. Unfortunately she is unable to undergo an MRI study due to her pacemaker. She reports no prior history of known tumors or cancers and is quite healthy otherwise. 03/23: CT brain with contrast shows enhancing lesion within the left temporal occipital and posterior parietal region with vasogenic edema and 7 mm midline shift. Her primary care physician Dr. Robb had notified her pacemaker to be MRI compatible. (Kacy Vargas) Labs, Micro, & Vital Signs Results Date Time Temp Pulse Resp B/P (MAP) Pulse Ox O2 Delivery O2 Flow Rate FiO2 03/23/17 08:43 95 21 03/23/17 06:00 68 03/23/17 04:00 74 03/23/17 04:00 97.4 74 20 134/75 (94) 98 03/23/17 02:00 60 03/23/17 00:00 58 03/23/17 00:00 58 20 101/57 (72) 97 03/22/17 22:00 74 03/22/17 20:00 97.9 76 23 161/72 (101) 98 03/22/17 20:00 76 03/22/17 19:56 96 03/22/17 19:00 98 Room Air 03/22/17 18:00 78 03/22/17 16:05 97.8 74 16 148/85 (106) 99 03/22/17 16:00 77 03/22/17 15:00 97.9 75 16 150/92 (111) 99 Room Air 03/22/17 14:58 16 03/22/17 14:10 97.8 70 16 150/81 (104) 98 Room Air 03/22/17 12:47 97.9 62 16 138/97 (111) 100 Room Air 03/24/17 06:59 Intake Total 140 ml Balance 140 ml Constitutional Vital Signs Date Time Temp Pulse Resp B/P (MAP) Pulse Ox O2 Delivery O2 Flow Rate FiO2 03/23/17 08:43 95 21 03/23/17 06:00 68 03/23/17 04:00 74 03/23/17 04:00 97.4 74 20 134/75 (94) 98 03/23/17 02:00 60 03/23/17 00:00 58 03/23/17 00:00 58 20 101/57 (72) 97 03/22/17 22:00 74 03/22/17 20:00 97.9 76 23 161/72 (101) 98 03/22/17 20:00 76 03/22/17 19:56 96 03/22/17 19:00 98 Room Air 03/22/17 18:00 78 03/22/17 16:05 97.8 74 16 148/85 (106) 99 03/22/17 16:00 77 03/22/17 15:00 97.9 75 16 150/92 (111) 99 Room Air 03/22/17 14:58 16 03/22/17 14:10 97.8 70 16 150/81 (104) 98 Room Air 03/22/17 12:47 97.9 62 16 138/97 (111) 100 Room Air 03/24/17 06:59 Intake Total 140 ml Balance 140 ml (Kacy Vargas) Review of Systems Eyes: COMPLAINS OF: Blurred vision, Photosensitivity Neurologic: COMPLAINS OF: Headache (Kacy Vargas) Physical Exam Ms. Cloud is alert, awake and oriented to time, place and person. Speech is fluent. Cranial nerve examination: pupils equal, round, and reactive to light. Extra- ocular movements are intact. Facial motor are normal and symmetrical. Gross hearing is intact, bilaterally. The uvula is midline and elevates symmetrically with the soft palate. Sternocleidomastoid and trapezius muscles have normal and symmetrical strength. Other cranial nerves are intact. Neck is soft and supple. Muscle testing reveals normal bulk and tone. Motor: moves both upper and lower extremities well. Lungs: clear, nonlabored breathing, no wheezing Heart: S1, S2 Skin: warm and dry, no cyanosis. (Kacy Vargas) Ms. Cloud is alert, awake and oriented to time, place and person. Speech is fluent. Cranial nerve examination: pupils equal, round, and reactive to light. Extra- ocular movements are intact. Facial motor are normal and symmetrical. Gross hearing is intact, bilaterally. The uvula is midline and elevates symmetrically with the soft palate. Sternocleidomastoid and trapezius muscles have normal and symmetrical strength. Other cranial nerves are intact. Neck is soft and supple. Muscle testing reveals normal bulk and tone. Motor: moves both upper and lower extremities well. Lungs: clear, nonlabored breathing, no wheezing Heart: S1, S2 Skin: warm and dry, no cyanosis. (Singh Winston MD) Medications Current Medications Current Medications Medications (Trade) Dose Ordered Sig/Rebecca Route PRN Reason Start Time Stop Time Status Last Admin Dose Admin Potassium Chloride/Sodium Chloride 1,000 ml @ 100 mls/hr Q10H IV 03/22/17 14:13 03/23/17 09:52 Sodium Chloride (NS Flush) 2 ml UNSCH PRN IV FLUSH FLUSH AFTER USING IV ACCESS 03/22/17 14:15 Sodium Chloride (NS Flush) 2 ml BID IV FLUSH 03/22/17 21:00 03/23/17 09:46 Acetaminophen (Tylenol) 650 mg Q6H PRN PO FEVER >101F 03/22/17 14:15 Acetaminophen/ Hydrocodone Bitart ([place] 5-325 Mg) 1 tab Q4H PRN PO PAIN SCALE 1 TO 5 03/22/17 14:15 03/22/17 18:19 Morphine Sulfate (Morphine Inj) 2 mg Q2H PRN IV PUSH PAIN SCALE 6 TO 10 03/22/17 14:15 03/23/17 09:51 Famotidine (Pepcid) 20 mg Q12HR PO 03/22/17 14:15 03/23/17 09:47 Ondansetron HCl (Zofran Inj) 4 mg Q6H PRN IV PUSH NAUSEA OR VOMITING 03/22/17 14:15 03/23/17 03:25 Zolpidem Tartrate (Ambien) 5 mg HS PRN PO INSOMNIA 03/22/17 14:15 Albuterol/ Ipratropium (Duoneb Neb) 1 ampule Q2HR NEB PRN INH WHEEZING 03/22/17 14:15 Miscellaneous Information 1 Q361D XX 03/22/17 14:15 03/22/17 16:54 Chlorhexidine Gluconate (Chlorhexidine 2% Cloth) 3 pack Taper DAILY@04 TOP 03/23/17 04:00 03/19/18 03:59 Chlorhexidine Gluconate (Chlorhexidine 2% Cloth) 3 pack UNSCH PRN TOP HYGIENIC CARE 03/22/17 14:15 Senna/Docusate Sodium (Melissa-Colace) 1 tab BID PO 03/22/17 21:00 03/23/17 09:47 Magnesium Hydroxide (Milk Of Magnesia Liq) 30 ml Q12H PRN PO Mild constipation 03/22/17 14:15 Sennosides (Senokot) 17.2 mg Q12H PRN PO Moderate constipation 03/22/17 14:15 Bisacodyl (Dulcolax Supp) 10 mg DAILY PRN RECTAL SEVERE CONSITIPATION 03/22/17 14:15 Lactulose (Lactulose Liq) 30 ml DAILY PRN PO SEVERE CONSITIPATION 03/22/17 14:15 Levetriacetam 500 mg/Sodium Chloride 105 ml @ 420 mls/hr Q12H IV 03/22/17 15:00 03/23/17 02:50 Mannitol (Mannitol Inj) 25 gm Q6HR IV 03/22/17 18:00 03/23/17 09:46 Dexamethasone Sodium Phosphate (Decadron Inj) 4 mg Q6HR IV PUSH 03/22/17 18:00 03/23/17 11:46 Oxycodone/ Acetaminophen (Percocet 10-325 Mg) 1 tab Q4H PRN PO Pain 6-10 03/22/17 18:15 03/23/17 11:46 (Kacy Vargas) Current Medications Current Medications Dexamethasone Sodium Phosphate (Decadron Inj) 10 mg ONCE ONCE IV PUSH Last administered on 03/22/17at 12:33; Start 03/22/17 at 12:30; Stop 03/22/17 at 12:31 ; Status DC Potassium Chloride/Sodium Chloride 1,000 ml @ 100 mls/hr Q10H IV Last administered on 03/24/17at 16:13; Start 03/22/17 at 14:13; Stop 03/25/17 at 09:46; Status DC Sodium Chloride (NS Flush) 2 ml UNSCH PRN IV FLUSH FLUSH AFTER USING IV ACCESS ; Start 03/22/17 at 14:15 Sodium Chloride (NS Flush) 2 ml BID IV FLUSH Last administered on 03/26/17 08: 51; Start 03/22/17 at 21:00 Acetaminophen (Tylenol) 650 mg Q6H PRN PO FEVER >101F; Start 03/22/17 at 14:15 ; Stop 03/25/17 at 09:46; Status DC Acetaminophen/ Hydrocodone Bitart ([place] 5-325 Mg) 1 tab Q4H PRN PO PAIN SCALE 1 TO 5 Last administered on 03/24/17at 21:03; Start 03/22/17 at 14:15; Stop 03/25/17 at 09:46; Status DC Morphine Sulfate (Morphine Inj) 2 mg Q2H PRN IV PUSH PAIN SCALE 6 TO 10 Last administered on 03/23/17at 20:24; Start 03/22/17 at 14:15; Stop 03/25/17 at 09:46 ; Status DC Famotidine (Pepcid) 20 mg Q12HR PO Last administered on 03/26/17at 08:51; Start 03/22/17 at 14:15 Ondansetron HCl (Zofran Inj) 4 mg Q6H PRN IV PUSH NAUSEA OR VOMITING Last administered on 03/26/17at 04:14; Start 03/22/17 at 14:15 Zolpidem Tartrate (Ambien) 5 mg HS PRN PO INSOMNIA; Start 03/22/17 at 14:15 Albuterol/ Ipratropium (Duoneb Neb) 1 ampule Q2HR NEB PRN INH WHEEZING; Start 03/22/17 at 14:15 Miscellaneous Information 1 Q361D XX Last administered on 03/22/17at 16:54; Start 03/22/17 at 14:15 Chlorhexidine Gluconate (Chlorhexidine 2% Cloth) 3 pack Taper DAILY@04 TOP ; Start 03/23/17 at 04:00; Stop 03/19/18 at 03:59 Chlorhexidine Gluconate (Chlorhexidine 2% Cloth) 3 pack UNSCH PRN TOP HYGIENIC CARE; Start 03/22/17 at 14:15 Senna/Docusate Sodium (Melissa-Colace) 1 tab BID PO Last administered on 03/26/17at 08:50; Start 03/22/17 at 21:00 Magnesium Hydroxide (Milk Of Magnesia Liq) 30 ml Q12H PRN PO Mild constipation ; Start 03/22/17 at 14:15 Sennosides (Senokot) 17.2 mg Q12H PRN PO Moderate constipation; Start 03/22/17 at 14:15 Bisacodyl (Dulcolax Supp) 10 mg DAILY PRN RECTAL SEVERE CONSITIPATION; Start at 14:15; Stop 03/25/17 at 09:46; Status DC Lactulose (Lactulose Liq) 30 ml DAILY PRN PO SEVERE CONSITIPATION Last administered on 03/24/17at 15:30; Start 03/22/17 at 14:15 Levetriacetam 500 mg/Sodium Chloride 105 ml @ 420 mls/hr Q12H IV Last administered on 03/25/17at 02:42; Start 03/22/17 at 15:00; Stop 03/25/17 at 09:46; Status DC Mannitol (Mannitol Inj) 25 gm Q6HR IV Last administered on 03/26/17at 06:01; Start 03/22/17 at 18:00 Dexamethasone Sodium Phosphate (Decadron Inj) 4 mg Q6HR IV PUSH Last administered on 03/26/17at 05:07; Start 03/22/17 at 18:00 Oxycodone/ Acetaminophen (Percocet 10-325 Mg) 1 tab Q4H PRN PO Pain 6-10 Last administered on 03/25/17at 06:47; Start 03/22/17 at 18:15; Stop 03/25/17 at 09:46; Status DC Iohexol (Omnipaque 350 Inj) 75 ml STK-MED ONCE IVCONTRAST Last administered on 03/22/17at 20:32; Start 03/22/17 at 20:32; Stop 03/22/17 at 20:33; Status DC Gadodiamide (Omniscan Pf Inj) 15 ml STK-MED ONCE IVCONTRAST Last administered on 03/23/17at 16:45; Start 03/23/17 at 16:45; Stop 03/23/17 at 19:31; Status DC Diatrizoate Meglum/ Diatrizoate Sod ( Gastroview Liq) 18 ml ONCE ONCE PO ; Start 03/23/17 at 18:26; Stop 03/23/17 at 18:27; Status Cancel Diatrizoate Meglum/ Diatrizoate Sod ( Gastroview Liq) 18 ml ONCE ONCE PO Last administered on 03/23/17at 20:01; Start 03/23/17 at 19:53; Stop 03/23/17 at 19:58; Status DC Iohexol (Omnipaque 350 Inj) 100 ml STK-MED ONCE IVCONTRAST Last administered on 03/24/17at 01:32; Start 03/24/17 at 01:32; Stop 03/24/17 at 01:33; Status DC Cefazolin Sodium/ Dextrose 50 ml @ 150 mls/hr [employer]CTOR [employer] EDUCATION IV ; Start 03/24/17 at 06 :00 Chlorhexidine Gluconate (Hibiclens 4% Top Soln) 1 applic HS TOP Last administered on 03/24/17at 21:56; Start 03/24/17 at 21:00; Stop 03/26/17 at 21:01 Fentanyl Citrate (fentaNYL INJ) 1,000 mcg STK-MED ONCE .ROUTE ; Start 03/25/17 at 06:58; Stop 03/25/17 at 06:59; Status DC Thrombin (Thrombin Top Soln) 10,000 units STK-MED ONCE .ROUTE Last administered on 03/25/17at 10:30; Start 03/25/17 at 07:15; Stop 03/25/17 at 07:16; Status DC Gelatin (Gelfoam 100 Top) 1 foam STK-MED ONCE .ROUTE Last administered on at 10:30; Start 03/25/17 at 07:15; Stop 03/25/17 at 07:16; Status DC Furosemide (Lasix Inj) 40 mg STK-MED ONCE .ROUTE Last administered on 03/25/17at 09:30; Start 03/25/17 at 07:16; Stop 03/25/17 at 07:17; Status DC Levetriacetam (Keppra Inj) 1,000 mg STK-MED ONCE IV Last administered on 09:30; Start 03/25/17 at 07:16; Stop 03/25/17 at 07:17; Status DC Bacitracin (Baciguent Oint) 15 applic STK-MED ONCE .ROUTE Last administered on 03/25/17 10:30; Start 03/25/17 at 07:16; Stop 03/25/17 at 07:17; Status DC Gentamicin Sulfate (Gentamicin Inj) 240 mg STK-MED ONCE .ROUTE Last administered on 03/25/17 10:30; Start 03/25/17 at 07:16; Stop 03/25/17 at 07:17; Status DC Propofol 100 ml @ As Directed STK-MED ONCE .ROUTE ; Start 03/25/17 at 08:25; Stop 03/25/17 at 08:26; Status DC Sugammadex Sodium (Bridion Inj) 200 mg STK-MED ONCE IV PUSH ; Start 03/25/17 at 09:02; Stop 03/25/17 at 09:03; Status DC Lidocaine/ Epinephrine (Xylocaine-Epi Mpf 2%-1:200,000 Inj) 20 ml STK-MED ONCE .ROUTE Last administered on 03/25/17 09:30; Start 03/25/17 at 09:11; Stop at 09:12; Status DC Potassium Chloride/Sodium Chloride 1,000 ml @ 100 mls/hr Q10H IV Last administered on 03/26/17at 11:00; Start 03/25/17 at 09:27 Cefazolin Sodium/ Dextrose 50 ml @ 100 mls/hr Q8H IV Last administered on at 00:52; Start 03/25/17 at 10:00; Stop 03/26/17 at 02:29; Status DC Levetriacetam 500 mg/Sodium Chloride 105 ml @ 400 mls/hr Q12H IV Last administered on 03/26/17at 11:00; Start 03/25/17 at 10:00 Bisacodyl (Dulcolax Supp) 10 mg DAILY PRN RECTAL CONSTIPATION; Start 03/25/17 at 09:30 Docusate Sodium (Colace) 100 mg BID PO Last administered on 03/26/17at 08:50; Start 03/25/17 at 21:00 Pantoprazole Sodium (Protonix) 40 mg DAILY PO ; Start 03/26/17 at 09:00 Pantoprazole Sodium (Protonix Inj) 40 mg DAILY IVP ; Start 03/26/17 at 09:00 Ondansetron HCl (Zofran Inj) 4 mg Q6H PRN IV PUSH NAUSEA OR VOMITING; Start 03/25/17 at 09:30 Calcium Gluconate (Calcium Gluconate Inj) 1 gm UNSCH PRN IV SEE LABEL COMMENTS ; Start 03/25/17 at 09:30 Potassium Chloride 100 ml @ 50 mls/hr UNSCH PRN IV POTASSIUM LESS THAN 4; Start 03/25/17 at 09:30 Magnesium Sulfate 4 gm/Sodium Chloride 108 ml @ 108 mls/hr UNSCH PRN IV MAGNESIUM LESS THAN 2; Start 03/25/17 at 09:30 Acetaminophen/ Hydrocodone Bitart ([place] 10-325 Mg) 1 tab Q4H PRN PO PAIN SCALE 1 TO 5 Last administered on 03/26/17at 10:59; Start 03/25/17 at 09:30 Acetaminophen/ Hydrocodone Bitart ([place] 10-325 Mg) 2 tab Q4H PRN PO PAIN SCALE 6 TO 10 Last administered on 03/26/17at 04:22; Start 03/25/17 at 09:30 Morphine Sulfate (Morphine Inj) 2 mg Q2H PRN IV PUSH PAIN SCALE 1 TO 6; Start 03/25/17 at 09:30; Stop 03/25/17 at 09:47; Status DC Morphine Sulfate (Morphine Inj) 4 mg Q2H PRN IV PUSH PAIN SCALE 7 TO 10 Last administered on 03/26/17at 04:14; Start 03/25/17 at 09:30 Acetaminophen (Tylenol) 650 mg Q4H PRN PO TEMPERATURE > 101.5 F; Start 03/25/17 at 09:30 Morphine Sulfate (Morphine Inj) 2 mg Q2H PRN IV PUSH PAIN SCALE 1 TO 6; Start 03/25/17 at 10:00 Meperidine HCl (*DEMEROL INJ PERIprocedural ONLY) 25 mg STK-MED ONCE .ROUTE Last administered on 03/25/17at 12:27; Start 03/25/17 at 12:27; Stop 03/25/17 at 12: 28; Status DC Ondansetron HCl (*ZOFRAN INJ PERIprocedural ONLY) 4 mg STK-MED ONCE .ROUTE Last administered on 03/25/17at 12:44; Start 03/25/17 at 12:44; Stop 03/25/17 at 12: 45; Status DC Miscellaneous Information ALL NURSING DEPARTME... UNSCH PRN .XX SEE LABEL COMMENTS; Start 03/25/17 at 12:24; Stop 03/26/17 at 12:23; Status DC Nicardipine HCl 25 mg/Sodium Chloride 250 ml @ 50 mls/hr TITRATE PRN IV BLOOD PRESSURE MANAGEMENT Last administered on 03/25/17at 20:55; Start 03/25/17 at 14:00 ; Stop 03/25/17 at 22:52; Status DC Nicardipine HCl (Cardene Inj) 25 mg STK-MED ONCE .ROUTE ; Start 03/25/17 at 13:01 ; Stop 03/25/17 at 13:02; Status DC Morphine Sulfate (*morphine INJ PERIprocedure ONLY) 4 mg STK-MED ONCE .ROUTE Last administered on 03/25/17at 13:04; Start 03/25/17 at 13:04; Stop 03/25/17 at 13: 05; Status DC Promethazine HCl (*PHENERGAN INJ PERIprocedural ONLY) 25 mg STK-MED ONCE .ROUTE Last administered on 03/25/17at 13:20; Start 03/25/17 at 13:20; Stop 03/25/17 at 13:21; Status DC Morphine Sulfate (*morphine INJ PERIprocedure ONLY) 4 mg STK-MED ONCE .ROUTE ; Start 03/25/17 at 13:30; Stop 03/25/17 at 13:31; Status DC Nicardipine HCl 25 mg/Sodium Chloride 250 ml @ 50 mls/hr TITRATE PRN IV Blood Pressure Management; Start 03/25/17 at 14:00; Stop 03/25/17 at 14:00; Status DC Nicardipine HCl 50 mg/Sodium Chloride 500 ml @ 50 mls/hr TITRATE PRN IV BLOOD PRESSURE MANAGEMENT Last administered on 03/26/17at 10:48; Start 03/25/17 at 23:00 (Singh Winston MD) Medical Decision Making MDM Remarks 56-year-old female with progressive headaches CT brain with contrast showed enhancing lesion within the left temporal occipital and posterior parietal with extensive vasogenic edema and 7 mm midline shift Patient with pacemaker -this has been reported to be MRI compatible (Kacy Vargas) Plan Plan Remarks CT brain with contrast reviewed with family We will obtain MRI brain today to better assess her brain mass, anticipate surgery this Tuesday for needle biopsy versus mass resection CT chest, abdomen and pelvis to assess for primary lesions Continue Decadron 4 mg every 6 hours Continue mannitol 25 g every 6 hours hold for surmise molality greater than 310 Continue neuro checks and ISC SCDs and teds for DVT prophylaxis, hold chemical prophylaxis at this time due to possible surgery this Tuesday Dr. Winston discussed with Dr. Holland (Kacy Vargas) Attending Statement As above Discussed the CT with contrast with her family. I discussed with other physicians. We will obtain MRI of the brain. May need to consider possible surgery The exam, history, and the medical decision-making described in the above note were completed with the assistance of the mid-level provider. I reviewed and agree with the findings presented. I attest that I had a [id number] encounter with the patient on the same day, and personally performed and documented my assessment and findings in the medical record. (Singh Winston MD) Kacy Vargas Mar 23, 2017 12:52 Singh Winston MD Mar 26, 2017 12:35
[2017-03-23] MEDS ORDERED: GADODIAMIDE PF 287 MG/ML 5 ML VIAL (for RAD MRI) IVCONTRAST ONE (16:45)
--- NOTE | 2017-03-23 17:06 | HHI.CCPN ---
Subjective Remarks/Hospital Course 03/22: 56-year-old female came to the emergency room with history of headache that is progressively worsening for past 1 week. Patient was initially taking Excedrin Migraine for the headache but when she realized that this doesn't feel normal she decided to go to her primary care. There was an MRI ordered by the primary care which was done this morning and the radiologist called the primary care to let her know that there is a large mass in her left hemisphere with associated edema and midline shift. She was sent to the emergency room because of this. Patient denies any unilateral weakness or focal deficits. She otherwise claims to be a healthy person. Dr. Winston from neurosurgery was contacted and requested patient be admitted by critical care medicine service. Patient was evaluated by Dr. Winston in the ER. I accepted the patient for admission and evaluated the patient in the ER subsequently. She was resting in the ER stretcher at that time complaining of some headache. She also tells me that she has had problems with her vision over the last 1 week with blurring especially with the right eye. 03/23: Continues to have headache. Awaiting MRI brain. Discussed with Dr. Sweet this morning who informed me that her pacemaker is MRI compatible. Neurosurgery following Objective Vital Signs Date Time Temp Pulse Resp B/P (MAP) Pulse Ox O2 Delivery O2 Flow Rate FiO2 03/23/17 16:00 68 03/23/17 12:00 97.5 23 128/72 (90) 97 03/23/17 08:43 21 03/23/17 07:00 Room Air Intake and Output 03/23/17 03/23/17 2/03/10 08:00 16:00 00:00 Intake Total 810 ml 357 ml Balance 810 ml 357 ml Result Diagram: 03/23/17 0243 03/23/17 0242 Imaging Last Impressions Chest X-Ray 03/22/17 0000 Signed Impressions: Service Date/Time: Wednesday, March 22, 2017 14:39 - CONCLUSION: No acute disease. Kelby Overton MD Objective Remarks Physical Exam Narrative GENERAL: Middle-aged female laying in bed, not in any acute distress SKIN: Focused skin assessment warm/dry. HEAD: Atraumatic. Normocephalic. EYES: Pupils equal and round. No scleral icterus. No injection or drainage. ENT: No nasal bleeding or discharge. Mucous membranes pink and moist. NECK: Trachea midline. No JVD. CARDIOVASCULAR: Regular rate and rhythm. No murmur appreciated. RESPIRATORY: No accessory muscle use. Clear to auscultation. Breath sounds equal bilaterally. GASTROINTESTINAL: Abdomen soft, non-tender, nondistended. Hepatic and splenic margins not palpable. MUSCULOSKELETAL: No obvious deformities. No clubbing. No cyanosis. No edema. NEUROLOGICAL: Awake and alert. Blurring of vision involving right eye. Pupils 4 mm bilaterally reacting actively to light. Motor grossly within normal limits. Normal speech. PSYCHIATRIC: Appropriate mood and affect; insight and judgment normal. A/P Assessment and Plan 56-year-old female with: 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 Neurosurgery - Dr. Winston following. Discussed with Dr. Winston personally. Continue mannitol and Decadron every 6 hourly. Keppra for seizure prophylaxis. Dr. Winston planning brain biopsy following MRI brain. Cardiovascular: IV hydration, watch for hypotension. Hydralazine as necessary for SBP greater than 1 60 mmHg. Pulmonary: On room air currently. Protecting airway. Bronchodilators as needed. GI/liver: By mouth diet as tolerated Renal/: IV hydration, monitor and replete electro lites, follow BUN/ creatinine. ID: No indication for antibiotics at this time. Heme: Follow CBC Endocrine: SSI for glycemic control as needed Prophylaxis: Pepcid, SCDs. No subcutaneous heparin in view of intracranial mass till cleared by neurosurgery. Discussed with Dr. Winston, discussed with patient's family at bedside. Jose C Holland MD Mar 23, 2017 17:06
[2017-03-23] MEDS: ACETAMINOPHEN/HYDROcodone 325 MG/5 MG TAB PO PRN (17:51)
--- NOTE | 2017-03-23 18:03 | RADRPT ---
EXAM DATE/TIME: 03/23/2017 16:44 [facility] COMPARISON: CT BRAIN STEALTH W CONTRAST, March 22, 2017, 20:11. INDICATIONS : Mass. CONTRAST: 15 cc Omniscan (gadodiamide) IV MEDICAL HISTORY : None. SURGICAL HISTORY : Pacemaker. ENCOUNTER: Subsequent ACUITY: 2 day PAIN SCORE: 0/10 LOCATION: head. TECHNIQUE: Multiplanar, multisequence MRI of the brain was performed both prior to and following the administrat ion of paramagnetic contrast. FINDINGS: An intra-axial mass is seen involving the left occipital lobe with extension towards the temporal lob e. It abuts the superior margin of the tentorium on the left. No dural thickening or abnormal dural e nhancement appreciated. This mass measures 5.7 x 3.9 x 2.7 cm. It has a lobulated contour with irregu lar heterogeneous but largely peripheral enhancement. There is considerable vasogenic edema observed. 7 mm of left to right midline shift noted. No other lesions are observed. No hemorrhage or acute inf arction. The ventricles are normal in size. CSF signal fills the suprasellar cistern. CONCLUSION: Left occipital lobe intra-axial mass measuring 5.7 x 3.9 x 2.7 cm with considerable vasogenic edema a nd 7 mm of midline shift. Differential diagnostic considerations would include a primary malignancy o f the brain with some form of glioma as most likely. A solitary metastasis could have a similar appea tanner. Mane Crews Jr., MD on March 23, 2017 at 17:41 Board Certified Radiologist. This report was verified electronically.
[2017-03-23] MEDS ORDERED: DIATRIZOATE MEGLUM/DIATRIZOATE SOD 9 ML CUP PO ONE ×2 (18:26→19:53)
[2017-03-23] MEDS: CHLORHEXIDINE GLUCONATE 2 % 1 PACK (2 CLOTHS) TOP SCH (21:23)
[2017-03-24] VITALS (12 sets, daily range): BP systolic 118–169; BP diastolic 67–94; PULSE 54–80; RESP 18–24; TEMP 97–98.2; O2SAT 95–97
[2017-03-24] MEDS: DEXAMETHASONE SOD PHOS 4 MG/ML VIAL IV PUSH SCH ×5 (00:09→23:28)
[2017-03-24] MEDS: MANNITOL 12.5 GM/50 ML VIAL IV SCH ×5 (00:10→23:54)
[2017-03-24] MEDS ORDERED: IOHEXOL 350 MG/ML 10 ML VIAL (for RAD DIAG) IVCONTRAST ONE (01:32)
--- NOTE | 2017-03-24 01:42 | RADRPT ---
EXAM DATE/TIME: 03/24/2017 01:19 [facility] COMPARISON: MRI BRAIN W & W/O CONTRAST, March 23, 2017, 16:44. INDICATIONS : Evaluate for metastatic disease. IV CONTRAST: 100 cc Omnipaque 350 (iohexol) IV ; Cumulative dose for multiple exams. ORAL CONTRAST: Prescribed oral contrast ingested. RADIATION DOSE: 10.37 CTDIvol (mGy) ; Combined studies - Thorax/Abdomen/Pelvis MEDICAL HISTORY : Newly diagnosed malignant brain mass. SURGICAL HISTORY : Pacemaker. ENCOUNTER: Initial ACUITY: 1 day PAIN SCALE: 0/10 LOCATION: abdomen and pelvis TECHNIQUE: Volumetric scanning of the abdomen and pelvis was performed. Using automated exposure control and ad justment of the mA and/or kV according to patient size, radiation dose was kept as low as reasonably achievable to obtain optimal diagnostic quality images. DICOM format image data is available electro nically for review and comparison. FINDINGS: Minimal basilar atelectasis. No acute findings in the liver, spleen, adrenals, right kidney or pancre as. Small hypervascular lesion inferior right lobe liver measuring about 1 cm. 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 Renal collecting system is mildly prominent without evidence for obstructive u ropathy. No adenopathy. No free fluid. No bowel obstruction. The uterus has a lobulated appearance most charac teristic of fibroid involvement is. There is vicarious excretion of contrast in the gallbladder. CONCLUSION: 1. No evidence for metastatic disease in the abdomen and pelvis. No acute findings. Robb Jackson MD on March 24, 2017 at 1:35 Board Certified Radiologist. This report was verified electronically.
--- NOTE | 2017-03-24 01:47 | RADRPT ---
EXAM DATE/TIME: 03/24/2017 01:19 [place] COMPARISON: No previous studies available for comparison. INDICATIONS : Evaluate for metastatic disease. IV CONTRAST: 100 cc Omnipaque 350 (iohexol) IV ; Cumulative dose for multiple exams. RADIATION DOSE: 10.37 CTDIvol (mGy) ; Combined studies - Thorax/Abdomen/Pelvis MEDICAL HISTORY : Newly diagnosed malignant brain mass. SURGICAL HISTORY : Pacemaker. ENCOUNTER: Initial ACUITY: 1 day PAIN SCALE: 0/10 LOCATION: chest TECHNIQUE: Volumetric scanning of the chest was performed. Using automated exposure control and adjustment of t he mA and/or kV according to patient size, radiation dose was kept as low as reasonably achievable to obtain optimal diagnostic quality images. DICOM format image data is available electronically for review and comparison. Follow-up recommendations for detected pulmonary nodules are based at a minimum on nodule size and pa tient risk factors according to Fleischner Society Guidelines. FINDINGS: LUNGS: There is no consolidation or pneumothorax. No concerning pulmonary nodule is visualized. PLEURA: There is no pleural thickening or pleural effusion. MEDIASTINUM: The heart and great vessels demonstrate no acute abnormality. There is no mediastinal or hilar lymph adenopathy. AXILLAE: Within normal limits. No lymphadenopathy. SKELETAL: Within normal limits for patient age. MISCELLANEOUS: The visualized upper abdominal organs demonstrate no acute abnormality. CONCLUSION: 1. Negative for metastatic disease in the thorax. No adenopathy or effusions. Pacer leads in right at rium and right ventricle. Robb Jackson MD on March 24, 2017 at 1:40 Board Certified Radiologist. This report was verified electronically.
[2017-03-24] MEDS: levETIRAcetam INJ 500 MG in SODIUM CHLORIDE 0.9% INJ 100 ML IV SCH ×2 (03:41→15:00)
[2017-03-24] MEDS: NS + KCL 20 MEQ INJ 1,000 ML IV SCH ×2 (05:53→16:13)
[2017-03-24] MEDS ORDERED: ceFAZolin 2 GM PREMIX 50 ML IV SCH (06:00)
[2017-03-24] MEDS: DOCUSATE SODIUM 50 MG/SENNA 8.6 MG TAB PO SCH ×2 (09:00→21:00)
[2017-03-24] MEDS: SODIUM CHLORIDE 0.9% FLUSH 10 ML FLUSH IV FLUSH SCH ×2 (09:00→21:00)
[2017-03-24] MEDS: FAMOTIDINE 20 MG TAB PO SCH ×2 (09:00→21:02)
[2017-03-24] MEDS: ACETAMINOPHEN/HYDROcodone 325 MG/5 MG TAB PO PRN ×2 (09:22→21:03)
--- NOTE | 2017-03-24 09:31 | MB ---
cc: GIDEON ABARCA MD DATE OF CONSULTATION 03/24/2017 DATE OF 1960 TIME OF CONSULTATION 7:50 a.m. REASON FOR CONSULTATION Mass involving the left parietal occipital lobe of the brain. Concerning for primary brain malignancy. CHIEF COMPLAINT Ms. Cloud reports a two-week history of progressive, severe left-sided headache associated with blurry vision in the right eye. HISTORY OF PRESENT ILLNESS Mr. Cloud is a very pleasant 56-year-old female, she is originally from [place], [place], she is single. She was never . She has no children of her own. 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 Ms. Cloud reports being in her usual good state of health up until the summer when she had syncopal episodes. She was evaluated and was found to have cardiac arrhythmia with frequent and long sinus pauses. She had a pacemaker placed. The pacemaker was placed at a hospital in [place], [place] in August of 2016. She reports having been well from a cardiac standpoint ever since. Her symptoms of left-sided headache began about two weeks ago, she also began to appreciate blurriness in the vision of her right eye. The symptoms progressed to the point where she presents to the emergency department for further workup and evaluation on 03/22/2017. The patient underwent imaging studies of the brain initially with a CT of the head which revealed a mass involving the left temporal occipital posterior parietal region with extensive vasogenic edema. There was a 7-mm subfalcine herniation to the right. MRI of the brain was subsequently performed on 03/23/2017. The patient was noted to have a 5.7 x 3.9 x 2.7 mass with vasogenic edema and a 7 mm midline shift. Differential diagnostic considerations included primary malignancy of the brain versus a metastatic lesion. The patient underwent CT imaging including CT scan of the chest, abdomen, and pelvis on 03/24/2017 and was found to have no evidence of primary lesions or metastatic disease within the chest, abdomen, or pelvis. The oncology service has been asked to see her for further workup and management. The patient is being seen by neurosurgery and is tentatively scheduled to undergo craniotomy with open biopsy and possible safe maximal resection of the lesion on the morning of 03/25/2017. PAST MEDICAL HISTORY Cardiac arrhythmia with cardiac sinus pauses. PAST SURGICAL HISTORY Pacemaker placement in August 2016. GYNECOLOGIC HISTORY 0, para 0. 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 She denies tobaccoism other than occasional smoking which would occur on rare occasions. She also reports occasional alcohol consumption. FAMILY HISTORY No oncologic diagnoses in the family were reported. ALLERGIES NO KNOWN DRUG ALLERGIES. CURRENT INPATIENT MEDICATIONS 1. Keppra 500 mg IV q.12 h. 2. Hydrocodone/acetaminophen 5/325 mg tablets every 4 hours as needed for pain. 3. Tylenol 650 mg p.o. q.6 h 4. DuoNeb one amp every two hours as needed for wheezing. 5. Dulcolax 10 mg per rectum daily as needed for severe Constipation. 6. Dexamethasone 4 mg IV q.6 h 7. Diatrizoate 18 mL p.o. times one 8. Senna Colace 1 tablet p.o. b.i.d. 9. Famotidine 20 mg p.o. q.12 h 10. Lactulose 30 mL p.o. daily as needed for severe constipation. 11. Mannitol 25 mg IV q.6 h. 12. Zofran 4 mg IV q.6 h needed for nausea and vomiting. REVIEW OF SYSTEMS A 13-point review of systems were obtained. CONSTITUTIONAL: The patient reports having had fatigue, weakness of the upper extremities and blurry vision. HEENT: The patient reports having severe splitting headaches. She reports having blurriness in the vision out of her right eye. She denies difficulty swallowing or soreness of the throat. RESPIRATORY: Denies difficulty breathing, cough or hemoptysis. CARDIOVASCULAR: Denies angina-like chest pain, PND, orthopnea. GI: Denies nausea, vomiting, diarrhea hematochezia, or melena. : No dysuria, hematuria, urinary incontinence. CHAIR CAR DRIVER: Reports having a right eye visual deficits and blurriness. She reports feeling weak in the upper and lower extremities. Vital signs: At 8 AM on 03/24/2017: Temperature 90.8F, heart rate 78 bpm, respiratory rate 24, blood pressure 1 69 x 86, O2 sats 97% on room air. Gen: Middle-aged female, laying in bed, she has sunglasses on. She appears to be no acute distress, she speaks in full sentences and is alert and oriented 3. HEENT: Head is atraumatic and normocephalic, conjunctivae are non-pale sclerae are anicteric, pupils are reactive. No conjunctival pallor or scleral icterus is noted. EOMI. RESP: Good air movement bilaterally without evidence of stridor, added breath sounds; rhonchi wheezes or rails. CVS: Regular rate and rhythm, S1 and S2 without added heart sounds specifically rubs or gallops. GI: Abdomen is thin, nondistended, nontender, no palpable hepatosplenomegaly positive bowel sounds. MUSCULOSKELETAL: Good muscle mass, tone and strength. No obvious tenderness or loss of range of motion. CHAIR CAR DRIVER: Decreased vision and visual acuity in the right eye. Otherwise cranial nerves are intact. She has 5 x 5 motor strength of the upper and lower extremities of the extensor and flexor compartments. There is no sensory deficits appreciated. SKIN: Skin examination is nonfocal without evidence of oozes or petechiae. HEME/LYMPH: No lymphadenopathy noted in the cervical lymph node chains. No splenomegaly. IMAGING: MRI brain dated 03/23/2017 with IV and without IV contrast. Conclusion: Left occipital lobe intra-axial mass measuring 5.7 x 3.9 x 2.7 cm with considerable vasogenic edema and a 7 mm midline shift. Differential diagnostic considerations include primary malignancy of the brain, glioma would be most likely. A solitary metastatic deposit from an extracranial origin may have a similar appearance. CT scan of the thorax with IV contrast dated 03/24/2017: Negative for metastatic disease in the thorax, no adenopathy or effusions noted. Pacemaker leads in the right atrium and right ventricle. CT scan of the abdomen and pelvis dated 03/24/2017: No evidence of metastatic disease in the abdomen or pelvis, no acute findings are identified. LABS: CBC dated 03/24/2017: WBC count 9.2, hemoglobin 12.5 g/dL, hematocrit 37.1%, platelet count 296, absolute neutrophil count is 8.3. CMP dated 03/23/2017: Sodium 139, potassium 4.4, chloride 105, bicarbonate 25.8, bun: 17, creatinine 0.76, EGFR 78 mL per minute, blood glucose 306, AST 11, alt 18, alkaline phosphatase 86, total bilirubin 0.3. Calcium 9.1 ASSESSMENT: Mr. Cloud is a 56-year-old female with a previous history of cardiac arrhythmia , status post pacemaker placement in the summer of 2016. The patient reports having symptoms of increasing left-sided headaches and blurry vision in her right eye, the symptoms had been progressive over the past 2 or 3 weeks. She presented to the emergency Department for further workup and management where imaging studies the brain revealed a 5.7 cm mass involving the left parieto- occipital lobe with resultant 7 mm midline shift from the left to the right. The lesion was surrounded by a significant amount of vasogenic edema. Imaging studies of the chest abdomen and pelvis indicate no evidence of an extracranial primary site. The primary differential diagnosis is a high-grade primary CHAIR CAR DRIVER tumor such as a high-grade glioma. She scheduled to undergo open biopsy and likely maximum safe resection on the morning of 03/25/2017. At today's visit I spoke to the patient, her sister's and brother. I also discussed the case with the patient's critical care attending at bedside as well as the neurosurgeon will perform surgery tomorrow. I cling to the patient's family that it would take at least 5-7 days following biopsy for final diagnosis to be established. Should a diagnosis of malignancy be confirmed postoperative treatment will be outlined upon final review of pathology and additional molecular testing which may be required to help optimize treatment. I did explain to the patient and her family that postoperative treatment for a high-grade glioma will involve concurrent chemoradiotherapy. Their questions were answered to their satisfaction. PLAN: 1. Open biopsy with possible maximal safe resection of the left parieto- occipital mass on 03/25/2017. The oncology service of follow along with you. Thank you for involving me in the care of this very pleasant patient. MD ТАТЬЯНА Yee/THANH /8:36 AM /9:01 AM FREDDY
--- NOTE | 2017-03-24 11:21 | HHI.CCPN ---
Subjective Remarks/Hospital Course 03/22: 56-year-old female came to the emergency room with history of headache that is progressively worsening for past 1 week. Patient was initially taking Excedrin Migraine for the headache but when she realized that this doesn't feel normal she decided to go to her primary care. There was an MRI ordered by the primary care which was done this morning and the radiologist called the primary care to let her know that there is a large mass in her left hemisphere with associated edema and midline shift. She was sent to the emergency room because of this. Patient denies any unilateral weakness or focal deficits. She otherwise claims to be a healthy person. Dr. Winston from neurosurgery was contacted and requested patient be admitted by critical care medicine service. Patient was evaluated by Dr. Winston in the ER. I accepted the patient for admission and evaluated the patient in the ER subsequently. She was resting in the ER stretcher at that time complaining of some headache. She also tells me that she has had problems with her vision over the last 1 week with blurring especially with the right eye. 03/23: Continues to have headache. Awaiting MRI brain. Discussed with Dr. Robb this morning who informed me that her pacemaker is MRI compatible. Neurosurgery following 03/24: Headache much improved today. Resting comfortably. Awaiting brain biopsy by Dr. Winston tomorrow. Objective Vital Signs Date Time Temp Pulse Resp B/P (MAP) Pulse Ox O2 Delivery O2 Flow Rate FiO2 03/24/17 10:00 71 03/24/17 08:00 98.0 24 169/86 (113) 97 03/24/17 07:00 Room Air 03/23/17 08:43 21 Intake and Output 03/24/17 03/24/17 03/25/17 08:00 16:00 00:00 Intake Total 1955 ml Balance 1955 ml Result Diagram: 03/23/173 03/23/17241 Imaging Last Impressions Abdomen/Pelvis CT 03/24/17132 Signed Impressions: Service Date/Time: March 01:19 - CONCLUSION: 1. No evidence for metastatic disease in the abdomen and pelvis. No acute findings. Robb Jackson MD Chest CT 03/24/17131 Signed Impressions: Service Date/Time: March 01:19 - CONCLUSION: 1. Negative for metastatic disease in the thorax. No adenopathy or effusions. Pacer leads in right atrium and right ventricle. Robb Jackson MD Brain MRI 03/23/17 0000 Signed Impressions: Service Date/Time: Thursday, March 23, 2017 16:44 - CONCLUSION: Left occipital lobe intra-axial mass measuring 5.7 x 3.9 x 2.7 cm with considerable vasogenic edema and 7 mm of midline shift. Differential diagnostic considerations would include a primary malignancy of the brain with some form of glioma as most likely. A solitary metastasis could have a similar appearance. Mane Crews Jr., MD Head CT 03/22/17 0000 Signed Impressions: Service Date/Time: Wednesday, March 22, 2017 20:11 - CONCLUSION: CT Brain Stealth examination was performed and demonstrates the ill-defined enhancing lesion within the left temporal occipital and posterior parietal region with extensive vasogenic edema and 7 mm of subfalcine herniation to the right. Harrison Gaspar MD Chest X-Ray 03/22/17 0000 Signed Impressions: Service Date/Time: Wednesday, March 22, 2017 14:39 - CONCLUSION: No acute disease. Kelby Overton MD Objective Remarks Physical Exam Narrative GENERAL: Middle-aged female laying in bed, not in any acute distress SKIN: Focused skin assessment warm/dry. HEAD: Atraumatic. Normocephalic. EYES: Pupils equal and round. No scleral icterus. No injection or drainage. ENT: No nasal bleeding or discharge. Mucous membranes pink and moist. NECK: Trachea midline. No JVD. CARDIOVASCULAR: Regular rate and rhythm. No murmur appreciated. RESPIRATORY: No accessory muscle use. Clear to auscultation. Breath sounds equal bilaterally. GASTROINTESTINAL: Abdomen soft, non-tender, nondistended. Hepatic and splenic margins not palpable. MUSCULOSKELETAL: No obvious deformities. No clubbing. No cyanosis. No edema. NEUROLOGICAL: Awake and alert. Blurring of vision involving right eye. Pupils 4 mm bilaterally reacting actively to light. Motor grossly within normal limits. Normal speech. PSYCHIATRIC: Appropriate mood and affect; insight and judgment normal. A/P Assessment and Plan 56-year-old female with: 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 Neurosurgery - Dr. Winston following. Discussed with Dr. Winston personally. Continue mannitol and Decadron every 6 hourly. Keppra for seizure prophylaxis. MRI Brain results noted. Dr. Winston planning brain biopsy on 03/25. Cardiovascular: IV hydration, watch for hypotension. Hydralazine as necessary for SBP greater than 160 mmHg. Pulmonary: On room air currently. Protecting airway. Bronchodilators as needed. GI/liver: By mouth diet as tolerated Renal/: IV hydration, monitor and replete electro lites, follow BUN/ creatinine. ID: No indication for antibiotics at this time. Heme: Follow CBC. Dr. Calzada oncology consulted for suspected primary brain neoplasm. Endocrine: SSI for glycemic control as needed Prophylaxis: Pepcid, SCDs. No subcutaneous heparin in view of intracranial mass till cleared by neurosurgery. Discussed with Dr. Winston, D/w Dr. Calzada, D/W ENVIRONMENTAL ENGINEER, discussed with patient's family at bedside. Jose C Holland MD Mar 24, 2017 11:21
[2017-03-24 11:31] LABS: AUTOMATED NEUTROPHIL # 8.3 TH/MM3 (1.8-7.7); BASOPHIL % 0.1 % (0.0-2.0); HEMATOCRIT 37.1 % (35.0-46.0); HEMOGLOBIN 12.5 GM/DL (11.6-15.3); LYMPH % 6.6 % (9.0-44.0); LYMPHOCYTE # 0.6 TH/MM3 (1.0-4.8); MEAN CELL VOLUME 89.7 FL (80.0-100.0); MEAN CORPUSCULAR HEMOGLOBIN 30.2 PG (27.0-34.0); MEAN CORPUSCULAR HGB CONC 33.6 % (32.0-36.0); MEAN PLATELET VOLUME 8.6 FL (7.0-11.0); MONO % 3.4 % (0.0-8.0); MONOCYTE # 0.3 TH/MM3 (0-0.9); NEUT % 89.9 % (16.0-70.0); PLATELET COUNT 296 TH/MM3 (150-450); RED BLOOD COUNT 4.14 MIL/MM3 (4.00-5.30); RED CELL DISTRIBUTION WIDTH 13.4 % (11.6-17.2); WHITE BLOOD COUNT 9.2 TH/MM3 (4.0-11.0)
--- NOTE | 2017-03-24 13:10 | HHI.NSPN ---
(Kacy Vargas) Note Status Status: Progress Note (Kacy Vargas) Interval History Interval History Ms. Cloud is a 56-year-old female who was sent to [place] the ED for brain mass. Apparently she has had progressive worsening of headaches with associated nausea. She underwent a CT head at [facility] which shows a mass in the left parieto-occipital low to mid convexity region with moderate vasogenic edema extending into the high convexity frontal and parietal regions and anteriorly into the temporal region. There is moderate global mass effect present with significant effacement and displacement of left lateral ventricle and about 6 mm of subfalcine midline shift. Unfortunately she is unable to undergo an MRI study due to her pacemaker. She reports no prior history of known tumors or cancers and is quite healthy otherwise. 03/23: CT brain with contrast shows enhancing lesion within the left temporal occipital and posterior parietal region with vasogenic edema and 7 mm midline shift. Her primary care physician Dr. Robb had notified her pacemaker to be MRI compatible. 03/24: CT of body without any evidence of primary lesions. MRI Brain completed showed left occipital lobe intra-axial mass measuring 5.7 x 3.9 x 2.7 cm with considerable vasogenic edema and 7 mm of midline shift. (Kacy Vargas) Labs, Micro, & Vital Signs Results Date Time Temp Pulse Resp B/P (MAP) Pulse Ox O2 Delivery O2 Flow Rate FiO2 03/24/17 10:00 71 03/24/17 08:00 78 03/24/17 08:00 98.0 80 24 169/86 (113) 97 03/24/17 07:00 97 Room Air 03/24/17 06:00 56 03/24/17 04:00 98.2 54 24 131/72 (91) 97 03/24/17 04:00 54 03/24/17 02:00 62 03/24/17 00:00 58 03/24/17 00:00 97.6 58 21 118/94 (102) 96 03/23/17 22:00 54 03/23/17 20:00 70 03/23/17 20:00 97.4 70 27 138/67 (90) 98 03/23/17 19:00 98 Room Air 03/23/17 18:00 63 03/23/17 16:00 68 03/23/17 16:00 97.7 68 21 119/70 (86) 99 03/23/17 14:00 67 Constitutional Vital Signs Date Time Temp Pulse Resp B/P (MAP) Pulse Ox O2 Delivery O2 Flow Rate FiO2 03/24/17 10:00 71 03/24/17 08:00 78 03/24/17 08:00 98.0 80 24 169/86 (113) 97 03/24/17 07:00 97 Room Air 03/24/17 06:00 56 03/24/17 04:00 98.2 54 24 131/72 (91) 97 03/24/17 04:00 54 03/24/17 02:00 62 03/24/17 00:00 58 03/24/17 00:00 97.6 58 21 118/94 (102) 96 03/23/17 22:00 54 03/23/17 20:00 70 03/23/17 20:00 97.4 70 27 138/67 (90) 98 03/23/17 19:00 98 Room Air 03/23/17 18:00 63 03/23/17 16:00 68 03/23/17 16:00 97.7 68 21 119/70 (86) 99 03/23/17 14:00 67 (Kacy Vargas) Physical Exam Ms. Cloud is alert, awake and oriented to time, place and person. Speech is fluent. Cranial nerve examination: pupils equal, round, and reactive to light. Extra- ocular movements are intact. Facial motor are normal and symmetrical. Gross hearing is intact, bilaterally. The uvula is midline and elevates symmetrically with the soft palate. Sternocleidomastoid and trapezius muscles have normal and symmetrical strength. Other cranial nerves are intact. Neck is soft and supple. Muscle testing reveals normal bulk and tone. Motor: moves both upper and lower extremities well. Lungs: clear, nonlabored breathing, no wheezing Heart: S1, S2 Skin: warm and dry, no cyanosis. (Kacy Vargas) Ms. Cloud is alert, awake and oriented to time, place and person. Speech is fluent. Cranial nerve examination: pupils equal, round, and reactive to light. Extra- ocular movements are intact. Facial motor are normal and symmetrical. Gross hearing is intact, bilaterally. The uvula is midline and elevates symmetrically with the soft palate. Sternocleidomastoid and trapezius muscles have normal and symmetrical strength. Other cranial nerves are intact. Neck is soft and supple. Muscle testing reveals normal bulk and tone. Motor: moves both upper and lower extremities well. Lungs: clear, nonlabored breathing, no wheezing Heart: S1, S2 Skin: warm and dry, no cyanosis. As above Discussed the MRI with contrast with her family. I discussed with other physicians. We will obtain MRI of the brain. I offered a biopsy versus ressection surgery. We have discussed the details including the [id number] details of the surgical procedure, its indications, alternatives, risks, and potential complications. Risks and potential complications include, but are not limited to, infection, blood loss, CSF leak, partial or complete loss of sight in one or both eyes, paresis, paralysis, permanent pain or difficulty swallowing, loss of bowel or bladder function, complications from anesthesia, blood clot, stroke, myocardial infarction, or even . The exam, history, and the medical decision-making described in the above note were completed with the assistance of the mid-level provider. I reviewed and agree with the findings presented. I attest that I had a [id number] encounter with the patient on the same day, and personally performed and documented my assessment and findings in the medical record. (Singh Winston MD) Medications Current Medications Current Medications Medications (Trade) Dose Ordered Sig/Rebecca Route PRN Reason Start Time Stop Time Status Last Admin Dose Admin Potassium Chloride/Sodium Chloride 1,000 ml @ 100 mls/hr Q10H IV 03/22/17 14:13 03/24/17 05:53 Sodium Chloride (NS Flush) 2 ml UNSCH PRN IV FLUSH FLUSH AFTER USING IV ACCESS 03/22/17 14:15 Sodium Chloride (NS Flush) 2 ml BID IV FLUSH 03/22/17 21:00 03/24/17 09:00 Acetaminophen (Tylenol) 650 mg Q6H PRN PO FEVER >101F 03/22/17 14:15 Acetaminophen/ Hydrocodone Bitart ([place] 5-325 Mg) 1 tab Q4H PRN PO PAIN SCALE 1 TO 5 03/22/17 14:15 03/24/17 09:22 Morphine Sulfate (Morphine Inj) 2 mg Q2H PRN IV PUSH PAIN SCALE 6 TO 10 03/22/17 14:15 03/23/17 20:24 Famotidine (Pepcid) 20 mg Q12HR PO 03/22/17 14:15 03/24/17 09:00 Ondansetron HCl (Zofran Inj) 4 mg Q6H PRN IV PUSH NAUSEA OR VOMITING 03/22/17 14:15 03/23/17 20:23 Zolpidem Tartrate (Ambien) 5 mg HS PRN PO INSOMNIA 03/22/17 14:15 Albuterol/ Ipratropium (Duoneb Neb) 1 ampule Q2HR NEB PRN INH WHEEZING 03/22/17 14:15 Miscellaneous Information 1 Q361D XX 03/22/17 14:15 03/22/17 16:54 Chlorhexidine Gluconate (Chlorhexidine 2% Cloth) 3 pack Taper DAILY@04 TOP 03/23/17 04:00 03/19/18 03:59 Chlorhexidine Gluconate (Chlorhexidine 2% Cloth) 3 pack UNSCH PRN TOP HYGIENIC CARE 03/22/17 14:15 Senna/Docusate Sodium (Melissa-Colace) 1 tab BID PO 03/22/17 21:00 03/23/17 20:23 Magnesium Hydroxide (Milk Of Magnesia Liq) 30 ml Q12H PRN PO Mild constipation 03/22/17 14:15 Sennosides (Senokot) 17.2 mg Q12H PRN PO Moderate constipation 03/22/17 14:15 Bisacodyl (Dulcolax Supp) 10 mg DAILY PRN RECTAL SEVERE CONSITIPATION 03/22/17 14:15 Lactulose (Lactulose Liq) 30 ml DAILY PRN PO SEVERE CONSITIPATION 03/22/17 14:15 Levetriacetam 500 mg/Sodium Chloride 105 ml @ 420 mls/hr Q12H IV 03/22/17 15:00 03/24/17 03:41 Mannitol (Mannitol Inj) 25 gm Q6HR IV 03/22/17 18:00 03/24/17 12:05 Dexamethasone Sodium Phosphate (Decadron Inj) 4 mg Q6HR IV PUSH 03/22/17 18:00 03/24/17 12:04 Oxycodone/ Acetaminophen (Percocet 10-325 Mg) 1 tab Q4H PRN PO Pain 6-10 03/22/17 18:15 03/23/17 11:46 Cefazolin Sodium/ Dextrose 50 ml @ 150 mls/hr WASHER ASSEMBLER IV 03/24/17 06:00 Chlorhexidine Gluconate (Hibiclens 4% Top Soln) 1 applic HS TOP 03/24/17 21:00 03/26/17 21:01 (Kacy Vargas) Medical Decision Making MDM Remarks 56-year-old female with progressive headaches, MRI Brain shows left occipital lobe intra-axial mass measuring 5.7 x 3.9 x 2.7 cm with considerable vasogenic edema and 7 mm of midline shift (Kacy Vargas) Plan Plan Remarks MRI, CT reviewed with patient and family, to OR tomorrow for biopsy, poss gross total resection of brain mass Continue Decadron 4 mg every 6 hours Continue mannitol 25 g every 6 hours hold for surmise molality greater than 310 Continue neuro checks and ISC SCDs and TEDs for DVT prophylaxis i NPO joseline (Kacy Vargas) Kacy Vargas Mar 24, 2017 13:10 Singh Winston MD Mar 26, 2017 12:37
[2017-03-24] MEDS: oxyCODONE/ACETAMINOPHEN 10 MG/325 MG TAB PO PRN (15:30)
[2017-03-24] MEDS: LACTULOSE SYRUP 20 GM/30 ML CUP PO PRN (15:30)
[2017-03-24] MEDS: ONDANSETRON HCL 4 MG/2 ML VIAL IV PUSH PRN (21:02)
[2017-03-24] MEDS: CHLORHEXIDINE GLUCONATE 4% SOLN 120 ML BTL TOP SCH (21:56)
[2017-03-25] VITALS (10 sets, daily range): BP systolic 124–166; BP diastolic 62–79; PULSE 50–91; RESP 11–26; TEMP 98–98.8; O2SAT 98–100
[2017-03-25] MEDS: levETIRAcetam INJ 500 MG in SODIUM CHLORIDE 0.9% INJ 100 ML IV SCH ×3 (02:42→20:57)
[2017-03-25] MEDS: CHLORHEXIDINE GLUCONATE 2 % 1 PACK (2 CLOTHS) TOP SCH (04:00)
[2017-03-25 05:34] LABS: AUTOMATED NEUTROPHIL # 6.2 TH/MM3 (1.8-7.7); HEMATOCRIT 38.7 % (35.0-46.0); HEMOGLOBIN 13.2 GM/DL (11.6-15.3); LYMPH % 13.4 % (9.0-44.0); MEAN CELL VOLUME 90.2 FL (80.0-100.0); MEAN CORPUSCULAR HEMOGLOBIN 30.7 PG (27.0-34.0); MEAN CORPUSCULAR HGB CONC 34.1 % (32.0-36.0); MEAN PLATELET VOLUME 8.7 FL (7.0-11.0); MONO % 3.6 % (0.0-8.0); MONOCYTE # 0.3 TH/MM3 (0-0.9); PLATELET COUNT 296 TH/MM3 (150-450); RED CELL DISTRIBUTION WIDTH 13.4 % (11.6-17.2); WHITE BLOOD COUNT 7.5 TH/MM3 (4.0-11.0)
[2017-03-25 05:50] LABS: ALBUMIN 3.5 GM/DL (3.4-5.0); AST (GOT) 9 U/L (15-37); BICARBONATE 26.5 MEQ/L (21.0-32.0); BLOOD UREA NITROGEN 15 MG/DL (7-18); CALCIUM 9.5 MG/DL (8.5-10.1); CHLORIDE 104 MEQ/L (98-107); CREATININE 0.85 MG/DL (0.50-1.00); GLOMERULAR FILTRATION RATE 69 ML/MIN (>89); GLUCOSE,RANDOM 106 MG/DL (74-106); SODIUM (NA) 139 MEQ/L (136-145)
[2017-03-25 05:51] LABS: ALT (GPT) 18 U/L (10-53)
[2017-03-25 05:53] LABS: ALKALINE PHOSPHATASE 85 U/L (45-117); TOTAL BILIRUBIN ADULT 0.4 MG/DL (0.2-1.0); TOTAL PROTEIN 7.4 GM/DL (6.4-8.2)
[2017-03-25] MEDS: DEXAMETHASONE SOD PHOS 4 MG/ML VIAL IV PUSH SCH ×4 (06:15→22:58)
[2017-03-25] MEDS: MANNITOL 12.5 GM/50 ML VIAL IV SCH ×4 (06:15→23:51)
[2017-03-25] MEDS: oxyCODONE/ACETAMINOPHEN 10 MG/325 MG TAB PO PRN (06:47)
[2017-03-25] MEDS ORDERED: fentaNYL CITRATE 1000 MCG/20 ML VIAL ONE (06:58)
[2017-03-25] MEDS ORDERED: THROMBIN (TOPICAL) 5,000 UNIT VIAL ONE (07:15)
[2017-03-25] MEDS ORDERED: GELFOAM SIZE 100 ONE (07:15)
[2017-03-25] MEDS ORDERED: levETIRAcetam 500 MG/5 ML VIAL IV ONE (07:16)
[2017-03-25] MEDS ORDERED: FUROSEMIDE 40 MG/4 ML VIAL ONE (07:16)
[2017-03-25] MEDS ORDERED: BACITRACIN TOP OINT 15 GM TUBE ONE (07:16)
[2017-03-25] MEDS ORDERED: GENTAMICIN SULFATE 80 MG/2 ML VIAL ONE (07:16)
[2017-03-25] MEDS ORDERED: PROPOFOL 500 MG/50 ML INJ 100 ML ONE (08:25)
[2017-03-25] MEDS: DOCUSATE SODIUM 50 MG/SENNA 8.6 MG TAB PO SCH ×2 (09:00→21:00)
[2017-03-25] MEDS: SODIUM CHLORIDE 0.9% FLUSH 10 ML FLUSH IV FLUSH SCH ×2 (09:00→21:00)
[2017-03-25] MEDS: FAMOTIDINE 20 MG TAB PO SCH ×2 (09:00→21:00)
[2017-03-25] MEDS ORDERED: SUGAMMADEX SODIUM 200 MG/2 ML VIAL IV PUSH ONE (09:02)
[2017-03-25] MEDS ORDERED: LIDOCAINE 2%/EPINEPHrine PF 1:200,000 20ML SDV ONE (09:11)
[2017-03-25] MEDS: ceFAZolin 2 GM PREMIX 50 ML IV SCH ×2 (09:20→18:42)
[2017-03-25] MEDS ORDERED: POTASSIUM CHLOR 20 MEQ PREMIX 100 ML IV PRN (09:30)
[2017-03-25] MEDS ORDERED: CALCIUM GLUCONATE 10% 1 GM/10 ML VIAL IV PRN (09:30)
[2017-03-25] MEDS ORDERED: MORPHINE SULFATE 4 MG/ML INJ IV PUSH PRN ×2 (09:30→10:00)
[2017-03-25] MEDS ORDERED: MAGNESIUM SULFATE INJ 4 GM in SODIUM CHLORIDE 0.9% INJ 100 ML IV PRN (09:30)
[2017-03-25] MEDS ORDERED: ACETAMINOPHEN/HYDROcodone 325 MG/10 MG TAB PO PRN (09:30)
[2017-03-25] MEDS ORDERED: BISACODYL 10 MG SUPP RECTAL PRN (09:30)
[2017-03-25] MEDS ORDERED: ONDANSETRON HCL 4 MG/2 ML VIAL IV PUSH PRN (09:30)
[2017-03-25] MEDS ORDERED: ACETAMINOPHEN 325 MG TAB PO PRN (09:30)
--- NOTE | 2017-03-25 11:40 | HHI.CCPN ---
Subjective Remarks/Hospital Course 03/22: 56-year-old female came to the emergency room with history of headache that is progressively worsening for past 1 week. Patient was initially taking Excedrin Migraine for the headache but when she realized that this doesn't feel normal she decided to go to her primary care. There was an MRI ordered by the primary care which was done this morning and the radiologist called the primary care to let her know that there is a large mass in her left hemisphere with associated edema and midline shift. She was sent to the emergency room because of this. Patient denies any unilateral weakness or focal deficits. She otherwise claims to be a healthy person. Dr. Winston from neurosurgery was contacted and requested patient be admitted by critical care medicine service. Patient was evaluated by Dr. Winston in the ER. I accepted the patient for admission and evaluated the patient in the ER subsequently. She was resting in the ER stretcher at that time complaining of some headache. She also tells me that she has had problems with her vision over the last 1 week with blurring especially with the right eye. 03/23: Continues to have headache. Awaiting MRI brain. Discussed with Dr. Robb this morning who informed me that her pacemaker is MRI compatible. Neurosurgery following 03/24: Headache much improved today. Resting comfortably. Awaiting brain biopsy by Dr. Winston tomorrow. 03/25: Awake and alert at the time of my evaluation this morning prior to planned brain biopsy. Objective Vital Signs Date Time Temp Pulse Resp B/P (MAP) Pulse Ox O2 Delivery O2 Flow Rate FiO2 03/25/17 08:00 98.1 64 26 145/75 (98) 100 03/25/17 07:00 Room Air 03/23/17 08:43 21 Intake and Output 03/25/17 03/25/17 03/26/17 08:00 16:00 00:00 Intake Total 305 ml Balance 305 ml Result Diagram: 03/25/17 0457 03/25/17 0457 Imaging Last Impressions Abdomen/Pelvis CT 03/24/17132 Signed Impressions: Service Date/Time: March 01:19 - CONCLUSION: 1. No evidence for metastatic disease in the abdomen and pelvis. No acute findings. Robb Jackson MD Chest CT 03/24/17131 Signed Impressions: Service Date/Time: March 01:19 - CONCLUSION: 1. Negative for metastatic disease in the thorax. No adenopathy or effusions. Pacer leads in right atrium and right ventricle. Robb Jackson MD Brain MRI 03/23/17 0000 Signed Impressions: Service Date/Time: Thursday, March 23, 2017 16:44 - CONCLUSION: Left occipital lobe intra-axial mass measuring 5.7 x 3.9 x 2.7 cm with considerable vasogenic edema and 7 mm of midline shift. Differential diagnostic considerations would include a primary malignancy of the brain with some form of glioma as most likely. A solitary metastasis could have a similar appearance. Mane Crews Jr., MD Head CT 03/22/17 0000 Signed Impressions: Service Date/Time: Wednesday, March 22, 2017 20:11 - CONCLUSION: CT Brain Stealth examination was performed and demonstrates the ill-defined enhancing lesion within the left temporal occipital and posterior parietal region with extensive vasogenic edema and 7 mm of subfalcine herniation to the right. Harrison Gaspar MD Chest X-Ray 03/22/17 0000 Signed Impressions: Service Date/Time: Wednesday, March 22, 2017 14:39 - CONCLUSION: No acute disease. Kelby Overton MD Objective Remarks Physical Exam Narrative GENERAL: Middle-aged female laying in bed, not in any acute distress SKIN: Focused skin assessment warm/dry. HEAD: Atraumatic. Normocephalic. EYES: Pupils equal and round. No scleral icterus. No injection or drainage. ENT: No nasal bleeding or discharge. Mucous membranes pink and moist. NECK: Trachea midline. No JVD. CARDIOVASCULAR: Regular rate and rhythm. No murmur appreciated. RESPIRATORY: No accessory muscle use. Clear to auscultation. Breath sounds equal bilaterally. GASTROINTESTINAL: Abdomen soft, non-tender, nondistended. Hepatic and splenic margins not palpable. MUSCULOSKELETAL: No obvious deformities. No clubbing. No cyanosis. No edema. NEUROLOGICAL: Awake and alert. Blurring of vision involving right eye. Pupils 4 mm bilaterally reacting actively to light. Motor grossly within normal limits. Normal speech. PSYCHIATRIC: Appropriate mood and affect; insight and judgment normal. A/P Assessment and Plan 56-year-old female with: 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 Neurosurgery - Dr. Winston following. Discussed with Dr. Winston personally. Continue mannitol and Decadron every 6 hourly. Keppra for seizure prophylaxis. MRI Brain results noted. Dr. Winston planning brain biopsy on 03/25. Cardiovascular: IV hydration, watch for hypotension. Hydralazine as necessary for SBP greater than 160 mmHg. Pulmonary: On room air currently. Protecting airway. Bronchodilators as needed. GI/liver: By mouth diet as tolerated Renal/: IV hydration, monitor and replete electro lites, follow BUN/ creatinine. ID: No indication for antibiotics at this time. Heme: Follow CBC. Dr. Calzada oncology consulted for suspected primary brain neoplasm. Endocrine: SSI for glycemic control as needed Prophylaxis: Pepcid, SCDs. No subcutaneous heparin in view of intracranial mass till cleared by neurosurgery. D/W POLITICAL SCIENCE RESEARCH ASSISTANT, discussed with patient's family at bedside. Jose C Holland MD Mar 25, 2017 11:40
[2017-03-25] MEDS ORDERED: ONDANSETRON HCL 4 MG/2 ML VIAL IV ONE (12:00)
[2017-03-25] MEDS ORDERED: ROCURONIUM INJ 50 MG/5 ML SYRINGE IV PUSH ONE (12:00)
[2017-03-25] MEDS ORDERED: DEXAMETHASONE SOD PHOS 4 MG/ML VIAL IV ONE (12:00)
[2017-03-25] MEDS ORDERED: PHENYLEPH/NS 1000 MCG/10 ML SYR IV ONE (12:00)
[2017-03-25] MEDS ORDERED: ePHEDrine/NS 25 MG/5 ML SYRINGE IV ONE (12:00)
[2017-03-25] MEDS ORDERED: PROPOFOL 200 MG/20 ML AMP IV ONE (12:00)
[2017-03-25] MEDS ORDERED: LIDOCAINE HCL 1% PF 5 ML SYRINGE OTHER ONE (12:00)
[2017-03-25] MEDS ORDERED: DO NOT ADM ANY ANTICOAGULANT DRUGS PRN (12:24)
[2017-03-25] MEDS ORDERED: *MEPERIDINE 25 MG INJ VIAL PERIprocedural Use ONLY ONE (12:27)
[2017-03-25] MEDS ORDERED: *ONDANSETRON 4 MG VIAL PERIprocedural Use ONLY ONE (12:44)
--- NOTE | 2017-03-25 13:01 | PD.OP ---
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 She was found to have a left temporal lobe mass with severe edema, causing mass effect on the underlying brain and midline shift. Metastatic workup was negative. Surgical resection was indicated. I have discussed the [id number] details of the procedure, its indications, alternatives, risks and potential complications with the patient including but not limited to the risk of infection, hemorrhage, paralysis, stroke, heart attack, even vegetative state or even the possibility of . The patient fully understands. All her questions were answered. No guarantees were given. She voiced requesting the procedure and provided informed consent. She has been offered the alternative of not having aggressive management. DETAILS OF THE SURGICAL PROCEDURE Prior to the surgery the patient underwent MRI of the brain according to the stereotactic protocol. The information was transferred to the workstation located in the operative suite. Preoperative registration was performed. The patient was then transferred to the operating room. After induction of general anesthesia, endotracheal intubation was done. A Ferrara catheter, bilateral DAVID hose, sequential compression devices were placed and kept throughout the procedure. The patient was positioned supine on a 30/80 table over gel mattress with her head in rigid fixation using the Ferreira splitter head. A gel roll was placed under her left shoulder and her head turned to the right side. All pressure points were carefully padded with egg crate mattress. The eyes were tapped shut after ointment was applied by the anesthesiologist to prevent corneal abrasion. A Ciaran hugger was placed over the exposed lower body to maintain control of the core body temperature. The electrophysiological team placed the needles and electrodes in their proper location and baseline SSEP's evoked potentials were registered. The rigid reference body was attached to the splitter head and intraoperative registration was performed with a laser. The left temporal occipital parietal area was shaved, prepped and draped in the usual sterile fashion. A standard curvilinear horseshoe incision was outlined on the scalp and infiltrated with 1% lidocaine with epinephrine. The skin incision was made with a #10 blade down to the level of the periosteum. Ronnell clips were applied to the scalp. Using a Bovie, the temporalis fascia and muscle were incised and a subperiosteal dissection was performed reflecting the scalp flap anteriorly. The scalp was covered with a moist sponge and held in position using fish hooks. The TPS drill was brought to the field and a bur hole was made in the occipital region using the craniotome attachment. Then, using the footplate attachment, a craniotomy flap was elevated. The dura was bulging, with mass effect due to the underlying tumor. The tumor was identified with the brainlab, and the dura was opened with a 15 blade and metzembaun sissors and retracted with 4-0 Neurolon sutures attached to the fascia. At this point of the procedure the operative microscope was draped in the usual sterile fashion and brought to the field. The rest of the surgical procedure was performed using microdissection technique with the exception of the closure. Under the operative microscope a small corticotomy was performed and the mass was debulked using microsurgical dissection technique, with the micro-bipolar forceps, microscissors, micro-suction, and gentle irrigation. The specimen was sent to the lab for histological analysis. The frozen section was reported as consistent with high grade glioma. Specimen was also sent for final hystopathological annalysis. Appropriate hemostasis was then secured using the bipolar master machinist. Then the incision was irrigated with saline solution. The dural edges were tacked to the bone. The craniotomy flap was then repositioned and secured in place using Striker plates and screws. A 7 millimeter Kevin-Montemayor drain was then left in the subgaleal space and externalized through a separate stab incision. The incision was then closed in layers. 0 Vicryl in interrupted sutures were used to close the temporalis fascia. The galea was closed with interrupted 3- 0 Vicryl. Graham were applied to the skin. The drain was secured with a 3-0 nylon. At the end of the procedure, the sponge, needle and instrument counts were all correct. Estimated blood loss was less than 100 cc. No blood transfusion was given. No intraoperative complications occurred. The patient received prophylactic antibiotics. The patient was then transferred to the recovery room in stable condition. COMPLICATIONS None Singh Winston MD Mar 25, 2017 13:01
[2017-03-25] MEDS ORDERED: *morphine SULFATE 4 MG/ML PERIprocedure ONLY ONE ×2 (13:04→13:30)
--- NOTE | 2017-03-25 13:10 | RADRPT ---
EXAM DATE/TIME: 03/25/2017 12:32 [facility] COMPARISON: CHEST SINGLE AP, March 22, 2017, 14:39. INDICATIONS : Post craniotomy and central line placement. MEDICAL HISTORY : Intracranial mass. SURGICAL HISTORY : Pacemaker. ENCOUNTER: Subsequent ACUITY: 4 - 6 days PAIN SCORE: Non-responsive. LOCATION: Bilateral chest FINDINGS: Stable dual-lead pacemaker in place. Interval placement of right IJ central line with tip in the 8 sh ow caval junction. No significant pneumothorax. No new focal pleural or parenchymal opacities. Cardio mediastinal contours are within normal limits. The nerve exam is unchanged. CONCLUSION: 1. Right IJ central line in good position. No pneumothorax. 2. No acute abnormality. Jayce Sousa MD on March 25, 2017 at 13:06 Board Certified Radiologist. This report was verified electronically.
[2017-03-25] MEDS ORDERED: *PROMETHAZINE 25 MG/ML VIAL PERIprocedural use ONLY ONE (13:20)
[2017-03-25] MEDS ORDERED: niCARdipine 25 MG/NS 250 ML Vial2Bag or IV room IV PRN ×2 (14:00)
--- NOTE | 2017-03-25 14:11 | RADRPT ---
EXAM DATE/TIME: 03/25/2017 13:50 [facility] COMPARISON: CT BRAIN STEALTH W CONTRAST, March 22, 2017, 20:11. INDICATIONS : Postoperative craniotomy RADIATION DOSE: 37.59 CTDIvol (mGy) MEDICAL HISTORY : Seizures. Cardiovascular disease SURGICAL HISTORY : Pacemaker. ENCOUNTER: Initial ACUITY: 1 day PAIN SCALE: 0/10 LOCATION: cranial TECHNIQUE: Multiple contiguous axial images were obtained of the head. Using automated exposure control and adj ustment of the mA and/or kV according to patient size, radiation dose was kept as low as reasonably a chievable to obtain optimal diagnostic quality images. DICOM format image data is available electro nically for review and comparison. FINDINGS: Interval left occipital craniotomy and resection of previously described left occipital mass. There i s persistent prominent vasogenic edema in the left posterior parietal and occipital mid convexity is with stable associated mass effect and subfalcine shift to the right measuring 6 mm. There is a surgi jeanette drain in place. Minimal pneumocephalus without significant hemorrhage. Ventricles are stable in s ize with redemonstration of mass effect on the left lateral ventricle. Basilar cisterns are intact. B rainstem and cerebellum are intact. Remainder of examination is unchanged. CONCLUSION: 1. Interval left occipital craniotomy with resection of previously described left occipital mass. Exp ected postoperative features without significant hemorrhage or progressive herniation. Jayce Sousa MD on March 25, 2017 at 14:03 Board Certified Radiologist. This report was verified electronically.
[2017-03-25] MEDS: NS + KCL 20 MEQ INJ 1,000 ML IV SCH ×2 (16:00→23:52)
[2017-03-25] MEDS: MORPHINE SULFATE 4 MG/ML INJ IV PUSH PRN ×4 (16:49→22:47)
[2017-03-25] MEDS: niCARdipine INJ 25 MG in SODIUM CHLOR 0.9% 250 ML INJ 240 ML IV PRN ×2 (16:50→20:55)
[2017-03-25] MEDS: ONDANSETRON HCL 4 MG/2 ML VIAL IV PUSH PRN (20:52)
[2017-03-25] MEDS: CHLORHEXIDINE GLUCONATE 4% SOLN 120 ML BTL TOP SCH (21:00)
[2017-03-25] MEDS: DOCUSATE SODIUM 100 MG CAP PO SCH (21:00)
[2017-03-25] MEDS: niCARdipine INJ 50 MG in SODIUM CHLORID 0.9% 500 ML INJ 480 ML IV PRN (23:40)
[2017-03-26] VITALS (10 sets, daily range): BP systolic 115–147; BP diastolic 61–69; PULSE 55–89; RESP 12–22; TEMP 96.5–98.7; O2SAT 96–100
[2017-03-26] MEDS: ceFAZolin 2 GM PREMIX 50 ML IV SCH (00:52)
[2017-03-26] MEDS: CHLORHEXIDINE GLUCONATE 2 % 1 PACK (2 CLOTHS) TOP SCH (04:00)
[2017-03-26] MEDS: ONDANSETRON HCL 4 MG/2 ML VIAL IV PUSH PRN (04:14)
[2017-03-26] MEDS: MORPHINE SULFATE 4 MG/ML INJ IV PUSH PRN (04:14)
[2017-03-26] MEDS: DEXAMETHASONE SOD PHOS 4 MG/ML VIAL IV PUSH SCH ×3 (05:07→18:01)
[2017-03-26] MEDS: niCARdipine INJ 50 MG in SODIUM CHLORID 0.9% 500 ML INJ 480 ML IV PRN ×2 (05:08→10:48)
[2017-03-26 05:19] LABS: AUTOMATED NEUTROPHIL # 6.7 TH/MM3 (1.8-7.7); BASOPHIL % 0.1 % (0.0-2.0); HEMATOCRIT 36.4 % (35.0-46.0); HEMOGLOBIN 12.1 GM/DL (11.6-15.3); LYMPH % 6.4 % (9.0-44.0); LYMPHOCYTE # 0.5 TH/MM3 (1.0-4.8); MEAN CELL VOLUME 90.3 FL (80.0-100.0); MEAN CORPUSCULAR HEMOGLOBIN 30.1 PG (27.0-34.0); MEAN CORPUSCULAR HGB CONC 33.4 % (32.0-36.0); MEAN PLATELET VOLUME 8.3 FL (7.0-11.0); MONO % 3.4 % (0.0-8.0); MONOCYTE # 0.2 TH/MM3 (0-0.9); NEUT % 90.1 % (16.0-70.0); PLATELET COUNT 279 TH/MM3 (150-450); RED BLOOD COUNT 4.03 MIL/MM3 (4.00-5.30); RED CELL DISTRIBUTION WIDTH 12.9 % (11.6-17.2); WHITE BLOOD COUNT 7.4 TH/MM3 (4.0-11.0)
[2017-03-26 05:35] LABS: BICARBONATE 28.8 MEQ/L (21.0-32.0); CALCIUM 8.8 MG/DL (8.5-10.1); CREATININE 0.76 MG/DL (0.50-1.00)
[2017-03-26] MEDS: MANNITOL 12.5 GM/50 ML VIAL IV SCH ×3 (06:01→18:01)
[2017-03-26] MEDS: DOCUSATE SODIUM 100 MG CAP PO SCH ×2 (08:50→21:00)
[2017-03-26] MEDS: DOCUSATE SODIUM 50 MG/SENNA 8.6 MG TAB PO SCH ×2 (08:50→21:45)
[2017-03-26] MEDS: FAMOTIDINE 20 MG TAB PO SCH ×2 (08:51→21:44)
[2017-03-26] MEDS: PANTOPRAZOLE SOD 40 MG DELAYED RELEASE TAB PO SCH (08:51)
[2017-03-26] MEDS: SODIUM CHLORIDE 0.9% FLUSH 10 ML FLUSH IV FLUSH SCH (08:51)
[2017-03-26] MEDS: PANTOPRAZOLE SODIUM 40 MG VIAL IVP SCH (08:51)
[2017-03-26] MEDS: ACETAMINOPHEN/HYDROcodone 325 MG/10 MG TAB PO PRN ×3 (10:59→18:02)
[2017-03-26] MEDS: NS + KCL 20 MEQ INJ 1,000 ML IV SCH (11:00)
[2017-03-26] MEDS: levETIRAcetam INJ 500 MG in SODIUM CHLORIDE 0.9% INJ 100 ML IV SCH ×2 (11:00→21:44)
--- NOTE | 2017-03-26 13:14 | HHI.NSPN ---
(Kacy Vargas) Note Status Status: Progress Note (Kacy Vargas) Interval History Interval History Ms. Cloud is a 56-year-old female who was sent to [place] the ED for brain mass. Apparently she has had progressive worsening of headaches with associated nausea. She underwent a CT head at [facility] which shows a mass in the left parieto-occipital low to mid convexity region with moderate vasogenic edema extending into the high convexity frontal and parietal regions and anteriorly into the temporal region. There is moderate global mass effect present with significant effacement and displacement of left lateral ventricle and about 6 mm of subfalcine midline shift. Unfortunately she is unable to undergo an MRI study due to her pacemaker. She reports no prior history of known tumors or cancers and is quite healthy otherwise. 03/23: CT brain with contrast shows enhancing lesion within the left temporal occipital and posterior parietal region with vasogenic edema and 7 mm midline shift. Her primary care physician Dr. Robb had notified her pacemaker to be MRI compatible. 03/24: CT of body without any evidence of primary lesions. MRI Brain completed showed left occipital lobe intra-axial mass measuring 5.7 x 3.9 x 2.7 cm with considerable vasogenic edema and 7 mm of midline shift. 2/3: s/p debulking of brain mass yesterday. pt doing well, awake, moves all four extremities. (Kacy Vargas) Labs, Micro, & Vital Signs Results Date Time Temp Pulse Resp B/P (MAP) Pulse Ox O2 Delivery O2 Flow Rate FiO2 03/26/17 12:00 82 03/26/17 11:10 75 124/60 03/26/17 10:48 70 139/65 03/26/17 09:20 64 117/57 03/26/17 08:45 82 123/58 03/26/17 08:00 98.1 81 16 139/69 (92) 99 Automatic Cuff 03/26/17 08:00 81 03/26/17 07:00 86 149/63 03/26/17 06:00 70 03/26/17 05:22 18 03/26/17 05:08 75 145/68 03/26/17 04:19 17 03/26/17 04:00 98.4 85 12 147/66 (93) 99 18 04:00 68 03/26/17 02:00 73 03/26/17 00:00 98.1 89 15 145/66 (92) 100 03/26/17 00:00 89 03/25/17 23:40 68 144/66 03/25/17 22:00 72 03/25/17 20:55 85 151/66 03/25/17 20:00 80 03/25/17 20:00 98.8 80 11 138/62 (87) 100 03/25/17 19:00 99 Nasal Cannula 2.00 03/25/17 18:00 91 03/25/17 16:50 88 138/60 03/25/17 16:00 98.3 90 13 124/67 (86) 100 03/25/17 16:00 90 03/25/17 14:00 82 03/25/17 13:30 97.3 79 16 140/70 (93) 96 Nasal Cannula 3 03/25/17 13:15 83 16 141/81 (101) 99 Nasal Cannula 3 03/27/17 07:00 Intake Total 1600 ml Balance 1600 ml Constitutional Vital Signs Date Time Temp Pulse Resp B/P (MAP) Pulse Ox O2 Delivery O2 Flow Rate FiO2 03/26/17 12:00 82 03/26/17 11:10 75 124/60 03/26/17 10:48 70 139/65 03/26/17 09:20 64 117/57 03/26/17 08:45 82 123/58 03/26/17 08:00 98.1 81 16 139/69 (92) 99 Automatic Cuff 03/26/17 08:00 81 03/26/17 07:00 86 149/63 03/26/17 06:00 70 03/26/17 05:22 18 03/26/17 05:08 75 145/68 18 04:19 17 03/26/17 04:00 98.4 85 12 147/66 (93) 99 03/26/17 04:00 68 03/26/17 02:00 73 03/26/17 00:00 98.1 89 15 145/66 (92) 100 03/26/17 00:00 89 03/25/17 23:40 68 144/66 03/25/17 22:00 72 03/25/17 20:55 85 151/66 03/25/17 20:00 80 03/25/17 20:00 98.8 80 11 138/62 (87) 100 03/25/17 19:00 99 Nasal Cannula 2.00 03/25/17 18:00 91 03/25/17 16:50 88 138/60 03/25/17 16:00 98.3 90 13 124/67 (86) 100 03/25/17 16:00 90 03/25/17 14:00 82 03/25/17 13:30 97.3 79 16 140/70 (93) 96 Nasal Cannula 3 03/25/17 13:15 83 16 141/81 (101) 99 Nasal Cannula 3 03/27/17 07:00 Intake Total 1600 ml Balance 1600 ml (Kacy Vargas) Review of Systems Constitutional: COMPLAINS OF: Fatigue Eyes: COMPLAINS OF: Blurred vision, Photosensitivity Respiratory: DENIES: Hemoptysis Cardiovascular: DENIES: Chest pain Neurologic: COMPLAINS OF: Headache, DENIES: Seizures (Kacy Vargas) Physical Exam Ms. Cloud is alert, and awake. She is conversing. Surgical wound with head wrap. AI drains in place. Cranial nerve: pupils equal, round. Facial motor are symmetrical Neck is soft and supple. Motor: moves both upper and lower extremities Lungs: clear, nonlabored breathing, no wheezing Heart: NSR (Kacy Vargas) Medications Current Medications Current Medications Medications (Trade) Dose Ordered Sig/Rebecca Route PRN Reason Start Time Stop Time Status Last Admin Dose Admin Sodium Chloride (NS Flush) 2 ml UNSCH PRN IV FLUSH FLUSH AFTER USING IV ACCESS 03/22/17 14:15 Sodium Chloride (NS Flush) 2 ml BID IV FLUSH 03/22/17 21:00 03/26/17 08:51 Famotidine (Pepcid) 20 mg Q12HR PO 03/22/17 14:15 03/26/17 08:51 Ondansetron HCl (Zofran Inj) 4 mg Q6H PRN IV PUSH NAUSEA OR VOMITING 03/22/17 14:15 03/26/17 04:14 Zolpidem Tartrate (Ambien) 5 mg HS PRN PO INSOMNIA 03/22/17 14:15 Albuterol/ Ipratropium (Duoneb Neb) 1 ampule Q2HR NEB PRN INH WHEEZING 03/22/17 14:15 Miscellaneous Information 1 Q361D XX 03/22/17 14:15 03/22/17 16:54 Chlorhexidine Gluconate (Chlorhexidine 2% Cloth) 3 pack Taper DAILY@04 TOP 03/23/17 04:00 03/19/18 03:59 Chlorhexidine Gluconate (Chlorhexidine 2% Cloth) 3 pack UNSCH PRN TOP HYGIENIC CARE 03/22/17 14:15 Senna/Docusate Sodium (Melissa-Colace) 1 tab BID PO 03/22/17 21:00 03/26/17 08:50 Magnesium Hydroxide (Milk Of Magnesia Liq) 30 ml Q12H PRN PO Mild constipation 03/22/17 14:15 Sennosides (Senokot) 17.2 mg Q12H PRN PO Moderate constipation 03/22/17 14:15 Lactulose (Lactulose Liq) 30 ml DAILY PRN PO SEVERE CONSITIPATION 03/22/17 14:15 03/24/17 15:30 Mannitol (Mannitol Inj) 25 gm Q6HR IV 03/22/17 18:00 03/26/17 06:01 Dexamethasone Sodium Phosphate (Decadron Inj) 4 mg Q6HR IV PUSH 03/22/17 18:00 03/26/17 05:07 Cefazolin Sodium/ Dextrose 50 ml @ 150 mls/hr LEAD OXIDE MILL TENDER IV 03/24/17 06:00 Chlorhexidine Gluconate (Hibiclens 4% Top Soln) 1 applic HS TOP 03/24/17 21:00 03/26/17 21:01 03/24/17 21:56 Potassium Chloride/Sodium Chloride 1,000 ml @ 100 mls/hr Q10H IV 03/25/17 09:27 03/26/17 11:00 Levetriacetam 500 mg/Sodium Chloride 105 ml @ 400 mls/hr Q12H IV 03/25/17 10:00 03/26/17 11:00 Bisacodyl (Dulcolax Supp) 10 mg DAILY PRN RECTAL CONSTIPATION 03/25/17 09:30 Docusate Sodium (Colace) 100 mg BID PO 03/25/17 21:00 03/26/17 08:50 Pantoprazole Sodium (Protonix) 40 mg DAILY PO 03/26/17 09:00 Pantoprazole Sodium (Protonix Inj) 40 mg DAILY IVP 03/26/17 09:00 Ondansetron HCl (Zofran Inj) 4 mg Q6H PRN IV PUSH NAUSEA OR VOMITING 03/25/17 09:30 Calcium Gluconate (Calcium Gluconate Inj) 1 gm UNSCH PRN IV SEE LABEL COMMENTS 03/25/17 09:30 Potassium Chloride 100 ml @ 50 mls/hr UNSCH PRN IV POTASSIUM LESS THAN 4 03/25/17 09:30 Magnesium Sulfate 4 gm/Sodium Chloride 108 ml @ 108 mls/hr UNSCH PRN IV MAGNESIUM LESS THAN 2 03/25/17 09:30 Acetaminophen/ Hydrocodone Bitart ([place] 10-325 Mg) 1 tab Q4H PRN PO PAIN SCALE 1 TO 5 03/25/17 09:30 03/26/17 10:59 Acetaminophen/ Hydrocodone Bitart ([place] 10-325 Mg) 2 tab Q4H PRN PO PAIN SCALE 6 TO 10 03/25/17 09:30 03/26/17 04:22 Morphine Sulfate (Morphine Inj) 4 mg Q2H PRN IV PUSH PAIN SCALE 7 TO 10 03/25/17 09:30 03/26/17 04:14 Acetaminophen (Tylenol) 650 mg Q4H PRN PO TEMPERATURE > 101.5 F 03/25/17 09:30 Morphine Sulfate (Morphine Inj) 2 mg Q2H PRN IV PUSH PAIN SCALE 1 TO 6 03/25/17 10:00 Nicardipine HCl 50 mg/Sodium Chloride 500 ml @ 50 mls/hr TITRATE PRN IV BLOOD PRESSURE MANAGEMENT 03/25/17 23:00 03/26/17 10:48 (Kacy Vargas) Medical Decision Making MDM Remarks 56-year-old female with progressive headaches, MRI Brain shows left occipital lobe intra-axial mass measuring 5.7 x 3.9 x 2.7 cm with considerable vasogenic edema and 7 mm of midline shift s/p craniotomy for debulking of brain mass 03/25/17, frozen section cw high grade glioma (Kacy Vargas) Plan Plan Remarks postop head CT reviewed by Dr. Winston cont Mannitol cont decadron f/u final pathology Dr. Daugherty consulted for radiation therapy cont AI draining today, dc tomorrow PT, clear to start mobilizing OOB with assistance nonchemical dvt prophylaxis neuro checks in [facility] (Kacy Vargas) Attending Statement The exam, history, and the medical decision-making described in the above note were completed with the assistance of the mid-level provider. I reviewed and agree with the findings presented. I attest that I had a [id number] encounter with the patient on the same day, and personally performed and documented my assessment and findings in the medical record. (Singh Winston MD) Kacy Vargas Mar 26, 2017 13:14 Singh Winston MD Mar 27, 2017 19:17
[2017-03-26] MEDS ORDERED: LISINOPRIL 10 MG TAB PO ONE (14:30)
--- NOTE | 2017-03-26 14:59 | HHI.CCPN ---
Subjective Remarks/Hospital Course 03/22: 56-year-old female came to the emergency room with history of headache that is progressively worsening for past 1 week. Patient was initially taking Excedrin Migraine for the headache but when she realized that this doesn't feel normal she decided to go to her primary care. There was an MRI ordered by the primary care which was done this morning and the radiologist called the primary care to let her know that there is a large mass in her left hemisphere with associated edema and midline shift. She was sent to the emergency room because of this. Patient denies any unilateral weakness or focal deficits. She otherwise claims to be a healthy person. Dr. Winston from neurosurgery was contacted and requested patient be admitted by critical care medicine service. Patient was evaluated by Dr. Winston in the ER. I accepted the patient for admission and evaluated the patient in the ER subsequently. She was resting in the ER stretcher at that time complaining of some headache. She also tells me that she has had problems with her vision over the last 1 week with blurring especially with the right eye. 03/23: Continues to have headache. Awaiting MRI brain. Discussed with Dr. Robb this morning who informed me that her pacemaker is MRI compatible. Neurosurgery following 03/24: Headache much improved today. Resting comfortably. Awaiting brain biopsy by Dr. Winston tomorrow. 03/25: Awake and alert at the time of my evaluation this morning prior to planned brain biopsy. 03/26: Awake and alert. Tolerating by mouth diet. Objective Vital Signs Date Time Temp Pulse Resp B/P (MAP) Pulse Ox O2 Delivery O2 Flow Rate FiO2 03/26/17 12:00 99 03/26/17 12:00 96.5 82 16 121/62 (81) 03/26/17 08:00 Nasal Cannula 3.00 03/23/17 08:43 21 Intake and Output 03/26/17 03/26/17 03/26/17 07:59 15:59 23:59 Intake Total 600 ml 1700 ml Output Total 1515 ml Balance -915 ml 1700 ml Result Diagram: 03/26/17 0500 03/26/17 0500 Imaging Last Impressions Abdomen/Pelvis CT 03/24/17 0133 Signed Impressions: Service Date/Time: March 01:19 - CONCLUSION: 1. No evidence for metastatic disease in the abdomen and pelvis. No acute findings. Robb Jackson MD Chest CT 03/24/17 0132 Signed Impressions: Service Date/Time: March 01:19 - CONCLUSION: 1. Negative for metastatic disease in the thorax. No adenopathy or effusions. Pacer leads in right atrium and right ventricle. Robb Jackson MD Brain MRI 03/23/17 0000 Signed Impressions: Service Date/Time: Thursday, March 23, 2017 16:44 - CONCLUSION: Left occipital lobe intra-axial mass measuring 5.7 x 3.9 x 2.7 cm with considerable vasogenic edema and 7 mm of midline shift. Differential diagnostic considerations would include a primary malignancy of the brain with some form of glioma as most likely. A solitary metastasis could have a similar appearance. Mane Crews Jr., MD Head CT 03/22/17 0000 Signed Impressions: Service Date/Time: Wednesday, March 22, 2017 20:11 - CONCLUSION: CT Brain Stealth examination was performed and demonstrates the ill-defined enhancing lesion within the left temporal occipital and posterior parietal region with extensive vasogenic edema and 7 mm of subfalcine herniation to the right. Harrison Gaspar MD Chest X-Ray 03/22/17 0000 Signed Impressions: Service Date/Time: Wednesday, March 22, 2017 14:39 - CONCLUSION: No acute disease. Kelby Overton MD Objective Remarks Physical Exam Narrative GENERAL: Middle-aged female laying in bed, not in any acute distress SKIN: Focused skin assessment warm/dry. HEAD: Atraumatic. Normocephalic. EYES: Pupils equal and round. No scleral icterus. No injection or drainage. ENT: No nasal bleeding or discharge. Mucous membranes pink and moist. NECK: Trachea midline. No JVD. CARDIOVASCULAR: Regular rate and rhythm. No murmur appreciated. RESPIRATORY: No accessory muscle use. Clear to auscultation. Breath sounds equal bilaterally. GASTROINTESTINAL: Abdomen soft, non-tender, nondistended. Hepatic and splenic margins not palpable. MUSCULOSKELETAL: No obvious deformities. No clubbing. No cyanosis. No edema. NEUROLOGICAL: Awake and alert. Blurring of vision involving right eye. Pupils 4 mm bilaterally reacting actively to light. Motor grossly within normal limits. Normal speech. PSYCHIATRIC: Appropriate mood and affect; insight and judgment normal. A/P Assessment and Plan 56-year-old female with: 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 Neurosurgery - Dr. Winston following. Discussed with Dr. Winston personally. Continue mannitol and Decadron every 6 hourly. Keppra for seizure prophylaxis. MRI Brain results noted. Dr. Winston performed debulking of brain mass with biopsy on 03/25. Cardiovascular: IV hydration, watch for hypotension. Hydralazine as necessary for SBP greater than 160 mmHg. add lisinopril 10 mg by mouth daily on 03/26 Pulmonary: On room air currently. Protecting airway. Bronchodilators as needed. GI/liver: By mouth diet as tolerated Renal/: IV hydration, monitor and replete electro lites, follow BUN/ creatinine. ID: No indication for antibiotics at this time. Heme: Follow CBC. Dr. Calzada oncology consulted for suspected primary brain neoplasm. Dr. Daugherty from radiation oncology will be consulted per Dr. Winston Endocrine: SSI for glycemic control as needed Prophylaxis: Pepcid, SCDs. No subcutaneous heparin in view of intracranial mass till cleared by neurosurgery. Discontinue central line, discontinue Ferrara catheter. Discontinue A-line later today if blood pressure remains controlled. 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 Discussed with Dr. Winston. Patient will be transferred to hospitalist service for further medical management. Critical care will be signing off, please reconsult if needed. Jose C Holland MD Mar 26, 2017 14:59
[2017-03-26] MEDS ORDERED: SODIUM CHLORIDE FLUSH PRN IV FLUSH (17:00)
[2017-03-26] MEDS ORDERED: cloNIDine HCL 0.1 MG TAB PO PRN (17:45)
[2017-03-26] MEDS: LACTULOSE SYRUP 20 GM/30 ML CUP PO PRN (18:29)
[2017-03-26] MEDS ORDERED: ALUMINUM/MAGNESIUM/SIMETH 30 ML CUP PO PRN (19:30)
[2017-03-26] MEDS: CHLORHEXIDINE GLUCONATE 4% SOLN 120 ML BTL TOP SCH (20:06)
[2017-03-26] MEDS: SODIUM CHLORIDE FLUSH BID IV FLUSH SCH (21:43)
[2017-03-27] VITALS (11 sets, daily range): BP systolic 116–151; BP diastolic 66–94; PULSE 55–83; RESP 12–24; TEMP 98–98.8; O2SAT 94–98
[2017-03-27] MEDS: MANNITOL 12.5 GM/50 ML VIAL IV SCH ×4 (01:16→18:07)
[2017-03-27] MEDS: DEXAMETHASONE SOD PHOS 4 MG/ML VIAL IV PUSH SCH ×4 (01:17→18:07)
[2017-03-27] MEDS: CHLORHEXIDINE GLUCONATE 2 % 1 PACK (2 CLOTHS) TOP SCH (01:17)
[2017-03-27] MEDS: ACETAMINOPHEN/HYDROcodone 325 MG/10 MG TAB PO PRN ×4 (01:19→19:21)
[2017-03-27] MEDS: SODIUM CHLORIDE FLUSH BID IV FLUSH SCH ×2 (08:40→20:43)
[2017-03-27] MEDS: LISINOPRIL 10 MG TAB PO SCH (08:42)
[2017-03-27] MEDS: DOCUSATE SODIUM 50 MG/SENNA 8.6 MG TAB PO SCH ×2 (08:42→20:44)
[2017-03-27] MEDS: FAMOTIDINE 20 MG TAB PO SCH ×2 (08:42→20:37)
[2017-03-27] MEDS: DOCUSATE SODIUM 100 MG CAP PO SCH ×2 (08:42→20:37)
[2017-03-27] MEDS: PANTOPRAZOLE SOD 40 MG DELAYED RELEASE TAB PO SCH (08:43)
[2017-03-27] MEDS: PANTOPRAZOLE SODIUM 40 MG VIAL IVP SCH (08:43)
--- NOTE | 2017-03-27 10:58 | HHI.NSPN ---
(Kacy Vargas) Note Status Status: Progress Note (Kacy Vargas) Interval History Interval History Ms. Cloud is a 56-year-old female who was sent to [place] the ED for brain mass. Apparently she has had progressive worsening of headaches with associated nausea. She underwent a CT head at [facility] which shows a mass in the left parieto-occipital low to mid convexity region with moderate vasogenic edema extending into the high convexity frontal and parietal regions and anteriorly into the temporal region. There is moderate global mass effect present with significant effacement and displacement of left lateral ventricle and about 6 mm of subfalcine midline shift. Unfortunately she is unable to undergo an MRI study due to her pacemaker. She reports no prior history of known tumors or cancers and is quite healthy otherwise. 03/23: CT brain with contrast shows enhancing lesion within the left temporal occipital and posterior parietal region with vasogenic edema and 7 mm midline shift. Her primary care physician Dr. Robb had notified her pacemaker to be MRI compatible. 03/24: CT of body without any evidence of primary lesions. MRI Brain completed showed left occipital lobe intra-axial mass measuring 5.7 x 3.9 x 2.7 cm with considerable vasogenic edema and 7 mm of midline shift. 2/3: s/p debulking of brain mass yesterday. pt doing well, awake, moves all four extremities. 2/4: minimal drainage out of AI drains. ambulating with RW. headaches much better today. (Kacy Vargas) Labs, Micro, & Vital Signs Results Date Time Temp Pulse Resp B/P (MAP) Pulse Ox O2 Delivery O2 Flow Rate FiO2 03/27/17 10:00 57 03/27/17 08:00 66 03/27/17 08:00 98.4 66 24 151/94 (113) 94 03/27/17 07:00 98 Room Air 03/27/17 06:00 58 03/27/17 04:00 62 03/27/17 04:00 98.5 83 23 121/71 (88) 96 03/27/17 02:00 55 03/27/17 00:00 98.7 62 12 116/68 (84) 98 03/27/17 00:00 62 03/26/17 22:00 56 18 20:14 97 03/26/17 20:00 55 03/26/17 20:00 98.7 89 22 115/61 (79) 100 03/26/17 19:04 13 03/26/17 19:00 100 Room Air 03/26/17 16:00 64 03/26/17 16:00 97.5 63 17 144/64 (90) 97 03/26/17 12:00 99 03/26/17 12:00 96.5 82 16 121/62 (81) 96 03/26/17 12:00 82 03/26/17 11:30 75 122/56 03/26/17 11:10 75 124/60 03/28/17 07:00 Intake Total 105 ml Balance 105 ml Constitutional Vital Signs Date Time Temp Pulse Resp B/P (MAP) Pulse Ox O2 Delivery O2 Flow Rate FiO2 03/27/17 10:00 57 03/27/17 08:00 66 03/27/17 08:00 98.4 66 24 151/94 (113) 94 03/27/17 07:00 98 Room Air 03/27/17 06:00 58 03/27/17 04:00 62 03/27/17 04:00 98.5 83 23 121/71 (88) 96 03/27/17 02:00 55 03/27/17 00:00 98.7 62 12 116/68 (84) 98 03/27/17 00:00 62 03/26/17 22:00 56 03/26/17 20:14 97 03/26/17 20:00 55 03/26/17 20:00 98.7 89 22 115/61 (79) 100 03/26/17 19:04 13 03/26/17 19:00 100 Room Air 03/26/17 16:00 64 03/26/17 16:00 97.5 63 17 144/64 (90) 97 03/26/17 12:00 99 03/26/17 12:00 96.5 82 16 121/62 (81) 96 03/26/17 12:00 82 03/26/17 11:30 75 122/56 03/26/17 11:10 75 124/60 03/28/17 07:00 Intake Total 105 ml Balance 105 ml (Kacy Vargas) Review of Systems Eyes: COMPLAINS OF: Blurred vision Cardiovascular: DENIES: Chest pain Neurologic: COMPLAINS OF: Headache, DENIES: Seizures, Speech Problems (Kacy Vargas) Physical Exam Ms. Cloud is alert, and awake. She is conversing well. Surgical wound is clean, pinpoint bleeding noted. AI drains x 2 with very minimal output overnight. Cranial nerve: pupils equal, round. Facial motor are symmetrical Neck is soft and supple. Motor: moves both upper and lower extremities well Lungs: clear Heart: regular rate, rhythm Gait: ambulating fairly well with rolling walker (Kacy Vargas) Medications Current Medications Current Medications Medications (Trade) Dose Ordered Sig/Rebecca Route PRN Reason Start Time Stop Time Status Last Admin Dose Admin Famotidine (Pepcid) 20 mg Q12HR PO 03/22/17 14:15 03/27/17 08:42 Zolpidem Tartrate (Ambien) 5 mg HS PRN PO INSOMNIA 03/22/17 14:15 Albuterol/ Ipratropium (Duoneb Neb) 1 ampule Q2HR NEB PRN INH WHEEZING 03/22/17 14:15 Miscellaneous Information 1 Q361D XX 03/22/17 14:15 03/22/17 16:54 Chlorhexidine Gluconate (Chlorhexidine 2% Cloth) 3 pack Taper DAILY@04 TOP 03/23/17 04:00 03/19/18 03:59 03/27/17 01:17 Chlorhexidine Gluconate (Chlorhexidine 2% Cloth) 3 pack UNSCH PRN TOP HYGIENIC CARE 03/22/17 14:15 Senna/Docusate Sodium (Melissa-Colace) 1 tab BID PO 03/22/17 21:00 03/27/17 08:42 Magnesium Hydroxide (Milk Of Magnesia Liq) 30 ml Q12H PRN PO Mild constipation 03/22/17 14:15 Sennosides (Senokot) 17.2 mg Q12H PRN PO Moderate constipation 03/22/17 14:15 Lactulose (Lactulose Liq) 30 ml DAILY PRN PO SEVERE CONSITIPATION 03/22/17 14:15 03/26/17 18:29 Mannitol (Mannitol Inj) 25 gm Q6HR IV 03/22/17 18:00 03/27/17 08:39 Dexamethasone Sodium Phosphate (Decadron Inj) 4 mg Q6HR IV PUSH 03/22/17 18:00 03/27/17 06:36 Cefazolin Sodium/ Dextrose 50 ml @ 150 mls/hr HAND ROUNDER IV 03/24/17 06:00 Bisacodyl (Dulcolax Supp) 10 mg DAILY PRN RECTAL CONSTIPATION 03/25/17 09:30 Docusate Sodium (Colace) 100 mg BID PO 03/25/17 21:00 03/26/17 08:50 Pantoprazole Sodium (Protonix) 40 mg DAILY PO 03/26/17 09:00 Pantoprazole Sodium (Protonix Inj) 40 mg DAILY IVP 03/26/17 09:00 Ondansetron HCl (Zofran Inj) 4 mg Q6H PRN IV PUSH NAUSEA OR VOMITING 03/25/17 09:30 Calcium Gluconate (Calcium Gluconate Inj) 1 gm UNSCH PRN IV SEE LABEL COMMENTS 03/25/17 09:30 Potassium Chloride 100 ml @ 50 mls/hr UNSCH PRN IV POTASSIUM LESS THAN 4 03/25/17 09:30 Magnesium Sulfate 4 gm/Sodium Chloride 108 ml @ 108 mls/hr UNSCH PRN IV MAGNESIUM LESS THAN 2 03/25/17 09:30 Acetaminophen/ Hydrocodone Bitart ([place] 10-325 Mg) 1 tab Q4H PRN PO PAIN SCALE 1 TO 5 03/25/17 09:30 03/27/17 09:07 Acetaminophen/ Hydrocodone Bitart ([place] 10-325 Mg) 2 tab Q4H PRN PO PAIN SCALE 6 TO 10 03/25/17 09:30 03/26/17 04:22 Morphine Sulfate (Morphine Inj) 4 mg Q2H PRN IV PUSH PAIN SCALE 7 TO 10 03/25/17 09:30 03/26/17 04:14 Acetaminophen (Tylenol) 650 mg Q4H PRN PO TEMPERATURE > 101.5 F 03/25/17 09:30 Morphine Sulfate (Morphine Inj) 2 mg Q2H PRN IV PUSH PAIN SCALE 1 TO 6 03/25/17 10:00 Nicardipine HCl 50 mg/Sodium Chloride 500 ml @ 50 mls/hr TITRATE PRN IV BLOOD PRESSURE MANAGEMENT 03/25/17 23:00 03/26/17 10:48 Lisinopril (Prinivil) 10 mg DAILY PO 03/27/17 09:00 03/27/17 08:42 Sodium Chloride (NS Flush) 2 ml BID IV FLUSH 03/26/17 21:00 03/27/17 08:40 Sodium Chloride (NS Flush) 2 ml UNSCH PRN IV FLUSH FLUSH AFTER USING IV ACCESS 03/26/17 17:00 Clonidine (Catapres) 0.1 mg Q6H PRN PO SYS BP GREATER THAN 160 MMHG 03/26/17 17:45 Al Hydrox/Mg Hydrox/Simethicone (Mag-Al Plus Susp Liq) 30 ml QID PRN PO HEARTBURN 03/26/17 19:30 Levetriacetam (Keppra) 500 mg Q12H PO 03/27/17 11:00 (Kacy Vargas) Medical Decision Making MDM Remarks 56-year-old female with progressive headaches, MRI Brain shows left occipital lobe intra-axial mass measuring 5.7 x 3.9 x 2.7 cm with considerable vasogenic edema and 7 mm of midline shift s/p craniotomy for debulking of brain mass 03/25/17, frozen section cw high grade glioma (Kacy Vargas) Plan Plan Remarks cont Mannitol 25 q 6 hours today, hold if serum os greater than 310 cont Decadron 4 mg q6 hours final pathology pending AI drains x 2 dc'ed cont therapy, mobilize OOB with assistance ok to transfer out of unit (Kacy Vargas) Attending Statement The exam, history, and the medical decision-making described in the above note were completed with the assistance of the mid-level provider. I reviewed and agree with the findings presented. I attest that I had a [id number] encounter with the patient on the same day, and personally performed and documented my assessment and findings in the medical record. (Singh Winston MD) Kacy Vargas Mar 27, 2017 10:58 Singh Winston MD Mar 27, 2017 19:22
[2017-03-27] MEDS: levETIRAcetam 500 MG TAB PO SCH (11:09)
--- NOTE | 2017-03-27 13:42 | HHI.CCPN ---
Subjective Remarks/Hospital Course 03/22: 56-year-old female came to the emergency room with history of headache that is progressively worsening for past 1 week. Patient was initially taking Excedrin Migraine for the headache but when she realized that this doesn't feel normal she decided to go to her primary care. There was an MRI ordered by the primary care which was done this morning and the radiologist called the primary care to let her know that there is a large mass in her left hemisphere with associated edema and midline shift. She was sent to the emergency room because of this. Patient denies any unilateral weakness or focal deficits. She otherwise claims to be a healthy person. Dr. Winston from neurosurgery was contacted and requested patient be admitted by critical care medicine service. Patient was evaluated by Dr. Winston in the ER. I accepted the patient for admission and evaluated the patient in the ER subsequently. She was resting in the ER stretcher at that time complaining of some headache. She also tells me that she has had problems with her vision over the last 1 week with blurring especially with the right eye. 03/23: Continues to have headache. Awaiting MRI brain. Discussed with Dr. Robb this morning who informed me that her pacemaker is MRI compatible. Neurosurgery following 03/24: Headache much improved today. Resting comfortably. Awaiting brain biopsy by Dr. Winston tomorrow. 03/25: Awake and alert at the time of my evaluation this morning prior to planned brain biopsy. 03/26: Awake and alert. Tolerating by mouth diet. 03/27: Walking in halls with assistance. Osmolality acceptable. Objective Vital Signs Date Time Temp Pulse Resp B/P (MAP) Pulse Ox O2 Delivery O2 Flow Rate FiO2 03/27/17 12:00 55 03/27/17 12:00 98.8 17 145/77 (99) 95 03/27/17 07:00 Room Air 03/26/17 08:00 3.00 03/23/17 08:43 21 Intake and Output 03/27/17 03/27/17 03/28/17 08:00 16:00 00:00 Intake Total 420 ml 105 ml Output Total 6 ml Balance 414 ml 105 ml Result Diagram: 03/26/17 0500 03/26/17 0500 Imaging Last Impressions Abdomen/Pelvis CT 03/24/17 0133 Signed Impressions: Service Date/Time: March 01:19 - CONCLUSION: 1. No evidence for metastatic disease in the abdomen and pelvis. No acute findings. Robb Jackson MD Chest CT 03/24/17 0132 Signed Impressions: Service Date/Time: March 01:19 - CONCLUSION: 1. Negative for metastatic disease in the thorax. No adenopathy or effusions. Pacer leads in right atrium and right ventricle. Robb Jackson MD Brain MRI 03/23/17 0000 Signed Impressions: Service Date/Time: Thursday, March 23, 2017 16:44 - CONCLUSION: Left occipital lobe intra-axial mass measuring 5.7 x 3.9 x 2.7 cm with considerable vasogenic edema and 7 mm of midline shift. Differential diagnostic considerations would include a primary malignancy of the brain with some form of glioma as most likely. A solitary metastasis could have a similar appearance. Mane Crews Jr., MD Head CT 03/22/17 0000 Signed Impressions: Service Date/Time: Wednesday, March 22, 2017 20:11 - CONCLUSION: CT Brain Stealth examination was performed and demonstrates the ill-defined enhancing lesion within the left temporal occipital and posterior parietal region with extensive vasogenic edema and 7 mm of subfalcine herniation to the right. Harrison Gaspar MD Chest X-Ray 03/22/17 0000 Signed Impressions: Service Date/Time: Wednesday, March 22, 2017 14:39 - CONCLUSION: No acute disease. Kelby Overton MD Objective Remarks Physical Exam GENERAL: Middle-aged female, calm SKIN: Focused skin assessment warm/dry. HEAD: Atraumatic. Normocephalic. EYES: Pupils equal and round. No scleral icterus. No injection or drainage. ENT: No nasal bleeding or discharge. Mucous membranes pink and moist. NECK: Trachea midline. Airway widely patent. CARDIOVASCULAR: Regular rate and rhythm. No murmur appreciated. No JVD. RESPIRATORY: No accessory muscle use. Clear to auscultation. Breath sounds equal bilaterally. GASTROINTESTINAL: Abdomen soft, non-tender, nondistended. No guarding. MUSCULOSKELETAL: No obvious deformities. No clubbing. No cyanosis. No edema. NEUROLOGICAL: Awake and alert. Pupils 3 mm bilaterally reacting actively to light. Motor grossly within normal limits. Normal speech. PSYCHIATRIC: Appropriate mood and affect; insight and judgment normal. A/P Assessment and Plan 56-year-old female with: Left-sided temporoparietal mass with 7 mm left to right subfalcine midline shift Cerebral edema Photophobia Headache Plan: Neuro: Neurosurgery - Dr. Winston following. Discussed with Dr. Winston personally. Continue mannitol and Decadron every 6 hourly. Keppra for seizure prophylaxis. MRI Brain results noted. Dr. Winston performed debulking of brain mass with biopsy on 03/25. Cardiovascular: Hydralazine necessary for SBP greater than 160 mmHg. add lisinopril 10 mg by mouth daily on 03/26 Pulmonary: On room air currently. Protecting airway. Bronchodilators as needed. GI/liver: By mouth diet as tolerated Renal/: IV hydration, monitor and replete electrolytes, follow BUN/creatinine. ID: No indication for antibiotics at this time. Heme: Follow CBC. Dr. Calzada oncology consulted for suspected primary brain neoplasm. Dr. Daugherty from radiation oncology will be consulted per Dr. Winston Endocrine: SSI for glycemic control as needed Prophylaxis: Pepcid, SCDs. No subcutaneous heparin in view of intracranial mass till cleared by neurosurgery. 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 Winston. Patient will be transferred to hospitalist service for further medical management. Critical care will be signing off, please reconsult if needed. Jason Gilbert MD Mar 27, 2017 13:42
[2017-03-28] VITALS (10 sets, daily range): BP systolic 117–148; BP diastolic 58–82; PULSE 54–66; RESP 18–20; TEMP 97.4–98.3; O2SAT 97–98
[2017-03-28] MEDS: levETIRAcetam 500 MG TAB PO SCH ×3 (00:06→23:53)
[2017-03-28] MEDS: DEXAMETHASONE SOD PHOS 4 MG/ML VIAL IV PUSH SCH ×5 (00:06→23:57)
[2017-03-28] MEDS: MANNITOL 12.5 GM/50 ML VIAL IV SCH ×4 (00:13→21:22)
[2017-03-28] MEDS: ACETAMINOPHEN/HYDROcodone 325 MG/10 MG TAB PO PRN ×5 (00:16→20:18)
[2017-03-28] MEDS: CHLORHEXIDINE GLUCONATE 2 % 1 PACK (2 CLOTHS) TOP SCH (04:00)
[2017-03-28 04:35] LABS: BICARBONATE 27.6 MEQ/L (21.0-32.0); CALCIUM 9.6 MG/DL (8.5-10.1); CREATININE 0.72 MG/DL (0.50-1.00)
[2017-03-28] MEDS: PANTOPRAZOLE SODIUM 40 MG VIAL IVP SCH (09:11)
[2017-03-28] MEDS: DOCUSATE SODIUM 50 MG/SENNA 8.6 MG TAB PO SCH ×2 (09:11→20:19)
[2017-03-28] MEDS: PANTOPRAZOLE SOD 40 MG DELAYED RELEASE TAB PO SCH (09:11)
[2017-03-28] MEDS: FAMOTIDINE 20 MG TAB PO SCH (09:11)
[2017-03-28] MEDS: LISINOPRIL 10 MG TAB PO SCH (09:11)
[2017-03-28] MEDS: DOCUSATE SODIUM 100 MG CAP PO SCH ×2 (09:11→20:19)
[2017-03-28] MEDS: SODIUM CHLORIDE FLUSH BID IV FLUSH SCH ×2 (09:12→21:22)
--- NOTE | 2017-03-28 09:16 | HHI.PR ---
Subjective Remarks doing ok. right visual field deficit ambulated. Objective Vitals heart reg lung cta abd s/nt ext no edema Vital Signs Date Time Temp Pulse Resp B/P (MAP) Pulse Ox O2 Delivery O2 Flow Rate FiO2 03/28/17 08:44 98.0 57 20 130/82 (98) 98 03/28/17 08:08 97 03/28/17 04:48 98.2 66 18 148/66 (93) 97 03/28/17 04:30 54 03/28/17 00:35 97.4 62 18 120/58 (78) 97 03/28/17 00:30 54 03/27/17 22:31 Room Air 03/27/17 20:52 98.0 73 18 133/81 (98) 96 03/27/17 20:30 58 03/27/17 16:00 55 03/27/17 16:00 98.5 55 16 121/66 (84) 97 03/27/17 14:00 60 03/27/17 13:51 18 03/27/17 12:00 55 03/27/17 12:00 98.8 55 17 145/77 (99) 95 03/27/17 10:00 57 Result Diagram: 03/26/17 0500 03/28/17 0333 A/P Problem List: (1) Intracranial mass ICD Codes: R90.0 - Intracranial space-occupying lesion found on diagnostic imaging of central nervous system Status: Acute Plan: 1. left intracranial mass. s/p craniotomy/resection 2/2 cont keppra mannitol per nsg on iv decadron. to po when ok with nsg ppi for heartburn. simethicone pt/ot going for radiation simulation today med onc following and path pending d/c home when ok with nsg and oncology. Juan Ramon Lopez MD Mar 28, 2017 09:16
--- NOTE | 2017-03-28 11:58 | RC ---
cc: RICHARD DAUGHERTY FEDERICO C. M.D. LATIF, ZAFAR MD DATE OF SERVICE: 03/27/2017 HISTORY Ms. Cloud is a 56-year-old female with recent history of photophobia, visual changes, headaches, nausea. She also reports a syncopal episode and lightheadedness several months ago. She underwent MRI of her brain that demonstrated a left occipital area. She initially underwent imaging with CT of her head. Brain MRI 03/23/2017 demonstrated 5.7 x 3.9 x 2.7 area of the left occipital lobe. She underwent a chest x-ray as well as imaging of the abdomen with no evidence of metastatic disease. She is seen as an inpatient to discuss treatment considerations. She is feeling better at this time. Met with her family as well to discuss treatment considerations. PAST MEDICAL AND SURGICAL HISTORY 1. No prior radiation therapy. 2. Pacemaker. 3. Cardiac arrhythmia. Cardiac sinus pauses. 4. Pacemaker August 2016. 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 Has lots of family here. 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 FAMILY HISTORY No first degree relatives with malignancy. ALLERGIES NO KNOWN DRUG ALLERGIES. MEDICATIONS 1. Keppra. 2. Hydrocodone/acetaminophen. 3. Tylenol. 4. Dexamethasone. REVIEW OF SYSTEMS Fatigue. Weakness upper extremities. Blurred vision. Headaches. Blurriness right eye. Denies chest pain, shortness of breath, cough, pain with urination. PHYSICAL EXAMINATION GENERAL: Pleasant female, comfortable, alert. Wearing sunglasses. HEENT: Eyes extraocular muscles intact. No scleral icterus. EXTREMITIES: No clubbing, cyanosis or edema. NEUROLOGIC: Alert and oriented. Follows two step commands. SKIN: No purpura rash. Appropriate turgor. IMAGING Radiographic imaging data MRI of the brain demonstrates approximately a 6 cm lesion with vasogenic edema up to 8-9 cm with slight midline shift. 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 IMPRESSION Ms. Cloud is a 56-year-old female with high-grade glioma status post maximal safe resection by Dr. Winston. COUNSELING AND COORDINATION OF CARE Involved discussing treatment options, operation done 03/25/2017. Ms. Cloud met. We met with her family as well. We discussed treatment considerations. We discussed additional evaluation. She is interested in proceeding with treatment. We will have her go to CT simulation. Complex blocking will be done to minimize dose to critical normal structures. Plan MRI fusion as well. We discussed standard therapeutic approach. We discussed NCCN guidelines. We will schedule her for CT simulation. We discussed potential toxicities, tiredness, fatigue, headaches. She expressed good understanding of the treatment approach. I will discuss with Dr. Calzada and Dr. Winston as well. Discussed with Dr. Winston > 50% resection PLAN CT simulation 03/28/2017. Definitive radiation therapy plus temozolamide. Discussed NCCN guidelines including alternating voltage scalp device. We discussed referral to tertiary care center as well. Richard Karel Daugherty MD Radiation Oncologist CHRISSIE/HATTIE /9:13 AM /11:32 AM FREDDY
[2017-03-28] MEDS: SIMETHICONE 125 MG CHEWABLE TAB PO SCH ×2 (12:00→18:16)
--- NOTE | 2017-03-28 16:36 | HHI.NSPN ---
Note Status Status: Progress Note Interval History Interval History Ms. Cloud is a 56-year-old female who was sent to [facility] the ED for brain mass. Apparently she has had progressive worsening of headaches with associated nausea. She underwent a CT head at [facility] which shows a mass in the left parieto-occipital low to mid convexity region with moderate vasogenic edema extending into the high convexity frontal and parietal regions and anteriorly into the temporal region. There is moderate global mass effect present with significant effacement and displacement of left lateral ventricle and about 6 mm of subfalcine midline shift. Unfortunately she is unable to undergo an MRI study due to her pacemaker. She reports no prior history of known tumors or cancers and is quite healthy otherwise. 03/23: CT brain with contrast shows enhancing lesion within the left temporal occipital and posterior parietal region with vasogenic edema and 7 mm midline shift. Her primary care physician Dr. Robb had notified her pacemaker to be MRI compatible. 2: CT of body without any evidence of primary lesions. MRI Brain completed showed left occipital lobe intra-axial mass measuring 5.7 x 3.9 x 2.7 cm with considerable vasogenic edema and 7 mm of midline shift. 2/3: s/p debulking of brain mass yesterday. pt doing well, awake, moves all four extremities. 2/4: minimal drainage out of AI drains. ambulating with RW. headaches much better today. 03/28: Attempted to see the patient this morning during rounds but was down for fitting for radiation treatment Labs, Micro, & Vital Signs Results Date Time Temp Pulse Resp B/P (MAP) Pulse Ox O2 Delivery O2 Flow Rate FiO2 03/28/17 16:19 98.3 59 20 117/71 (86) 97 03/28/17 12:00 98.1 55 20 122/78 (93) 97 03/28/17 08:45 Room Air 03/28/17 08:44 98.0 57 20 130/82 (98) 98 03/28/17 08:08 97 03/28/17 08:00 60 03/28/17 04:48 98.2 66 18 148/66 (93) 97 03/28/17 04:30 54 03/28/17 00:35 97.4 62 18 120/58 (78) 97 03/28/17 00:30 54 03/27/17 22:31 Room Air 03/27/17 20:52 98.0 73 18 133/81 (98) 96 03/27/17 20:30 58 03/29/17 07:00 Intake Total 480 ml Balance 480 ml Constitutional Vital Signs Date Time Temp Pulse Resp B/P (MAP) Pulse Ox O2 Delivery O2 Flow Rate FiO2 03/28/17 16:19 98.3 59 20 117/71 (86) 97 03/28/17 12:00 98.1 55 20 122/78 (93) 97 03/28/17 08:45 Room Air 03/28/17 08:44 98.0 57 20 130/82 (98) 98 03/28/17 08:08 97 03/28/17 08:00 60 03/28/17 04:48 98.2 66 18 148/66 (93) 97 03/28/17 04:30 54 03/28/17 00:35 97.4 62 18 120/58 (78) 97 03/28/17 00:30 54 03/27/17 22:31 Room Air 03/27/17 20:52 98.0 73 18 133/81 (98) 96 03/27/17 20:30 58 03/29/17 07:00 Intake Total 480 ml Balance 480 ml Physical Exam Unable to see patient not in room Medications Current Medications Current Medications Medications (Trade) Dose Ordered Sig/Rebecca Route PRN Reason Start Time Stop Time Status Last Admin Dose Admin Zolpidem Tartrate (Ambien) 5 mg HS PRN PO INSOMNIA 03/22/17 14:15 Albuterol/ Ipratropium (Duoneb Neb) 1 ampule Q2HR NEB PRN INH WHEEZING 03/22/17 14:15 Miscellaneous Information 1 Q361D XX 03/22/17 14:15 03/22/17 16:54 Chlorhexidine Gluconate (Chlorhexidine 2% Cloth) Taper DAILY@04 TOP 03/23/17 04:00 03/19/18 03:59 03/27/17 01:17 Chlorhexidine Gluconate (Chlorhexidine 2% Cloth) 3 pack UNSCH PRN TOP HYGIENIC CARE 1/30/18 14:15 Senna/Docusate Sodium (Melissa-Colace) 1 tab BID PO 03/22/17 21:00 03/28/17 09:11 Magnesium Hydroxide (Milk Of Magnesia Liq) 30 ml Q12H PRN PO Mild constipation 03/22/17 14:15 03/27/17 16:27 Sennosides (Senokot) 17.2 mg Q12H PRN PO Moderate constipation 03/22/17 14:15 Lactulose (Lactulose Liq) 30 ml DAILY PRN PO SEVERE CONSITIPATION 03/22/17 14:15 03/26/17 18:29 Mannitol (Mannitol Inj) 25 gm Q6HR IV 03/22/17 18:00 03/28/17 12:43 Dexamethasone Sodium Phosphate (Decadron Inj) 4 mg Q6HR IV PUSH 03/22/17 18:00 03/28/17 12:43 Cefazolin Sodium/ Dextrose 50 ml @ 150 mls/hr AIRCRAFT ENGINE TECHNICIAN IV 03/24/17 06:00 Bisacodyl (Dulcolax Supp) 10 mg DAILY PRN RECTAL CONSTIPATION 03/25/17 09:30 Docusate Sodium (Colace) 100 mg BID PO 03/25/17 21:00 03/28/17 09:11 Pantoprazole Sodium (Protonix) 40 mg DAILY PO 03/26/17 09:00 03/28/17 09:11 Ondansetron HCl (Zofran Inj) 4 mg Q6H PRN IV PUSH NAUSEA OR VOMITING 03/25/17 09:30 03/27/17 13:15 Calcium Gluconate (Calcium Gluconate Inj) 1 gm UNSCH PRN IV SEE LABEL COMMENTS 03/25/17 09:30 Magnesium Sulfate 4 gm/Sodium Chloride 108 ml @ 108 mls/hr UNSCH PRN IV MAGNESIUM LESS THAN 2 03/25/17 09:30 Acetaminophen/ Hydrocodone Bitart ([place] 10-325 Mg) 1 tab Q4H PRN PO PAIN SCALE 1 TO 5 03/25/17 09:30 03/28/17 15:20 Acetaminophen/ Hydrocodone Bitart ([place] 10-325 Mg) 2 tab Q4H PRN PO PAIN SCALE 6 TO 10 03/25/17 09:30 03/26/17 04:22 Morphine Sulfate (Morphine Inj) 4 mg Q2H PRN IV PUSH PAIN SCALE 7 TO 10 03/25/17 09:30 03/26/17 04:14 Acetaminophen (Tylenol) 650 mg Q4H PRN PO TEMPERATURE > 101.5 F 03/25/17 09:30 Morphine Sulfate (Morphine Inj) 2 mg Q2H PRN IV PUSH PAIN SCALE 1 TO 6 03/25/17 10:00 Lisinopril (Prinivil) 10 mg DAILY PO 03/27/17 09:00 03/28/17 09:11 Sodium Chloride (NS Flush) 2 ml BID IV FLUSH 03/26/17 21:00 03/28/17 09:12 Sodium Chloride (NS Flush) 2 ml UNSCH PRN IV FLUSH FLUSH AFTER USING IV ACCESS 03/26/17 17:00 Clonidine (Catapres) 0.1 mg Q6H PRN PO SYS BP GREATER THAN 160 MMHG 03/26/17 17:45 Al Hydrox/Mg Hydrox/Simethicone (Mag-Al Plus Susp Liq) 30 ml QID PRN PO HEARTBURN 03/26/17 19:30 Levetriacetam (Keppra) 500 mg Q12H PO 03/27/17 11:00 03/28/17 12:43 Simethicone (Phazyme Chew) 125 mg TIDAC PO 03/28/17 12:00 Medical Decision Making MDM Remarks 56-year-old female with progressive headaches, MRI Brain shows left occipital lobe intra-axial mass measuring 5.7 x 3.9 x 2.7 cm with considerable vasogenic edema and 7 mm of midline shift s/p craniotomy for debulking of brain mass 03/25/17, frozen section cw high grade glioma Plan Plan Remarks Start decreasing mannitol 12.5 g every 12 hours, hold for ceramides greater than 310 Start decreasing Decadron now to 3 mg q6 hours final pathology pending cont therapy Kacy Vargas Mar 28, 2017 16:36
[2017-03-28] MEDS: LACTULOSE SYRUP 20 GM/30 ML CUP PO PRN (18:13)
[2017-03-29] VITALS: BP 141/84; PULSE 55; PULSE 56; RESP 18; TEMP 97.6; O2SAT 98
[2017-03-29] MEDS: ACETAMINOPHEN/HYDROcodone 325 MG/10 MG TAB PO PRN ×2 (02:50→09:13)
[2017-03-29 04:00] VITALS: PULSE 55
[2017-03-29] MEDS: CHLORHEXIDINE GLUCONATE 2 % 1 PACK (2 CLOTHS) TOP SCH (04:00)
[2017-03-29] MEDS: DEXAMETHASONE SOD PHOS 4 MG/ML VIAL IV PUSH SCH (06:21)
[2017-03-29 07:20] VITALS: BP 141/80; PULSE 59; RESP 18; TEMP 97.9; O2SAT 98
[2017-03-29 08:00] VITALS: BP 145/92; PULSE 76; RESP 20; TEMP 97.8; O2SAT 97
--- NOTE | 2017-03-29 08:31 | PD.ONC.PN ---
Subjective Subjective Remarks Patient seen and examined, vital signs, labs, operative note imaging studies and pathology reviewed. Subjectively; the patient reports having some headache, some gastritis but overall feels well. She is looking forward to going home. Her sisters are at bedside with her. I talked to all within about the final pathology of the excisional biopsy of the left parietal lobe brain mass. Pathologic analysis confirmed glioblastoma multi-forming as well as additional high-grade glioma. Objective Data Date Time Temp Pulse Resp B/P (MAP) Pulse Ox O2 Delivery O2 Flow Rate FiO2 03/29/17 07:20 97.9 59 18 141/80 (100) 98 03/29/17 04:00 55 03/29/17 00:00 56 03/29/17 00:00 97.6 55 18 141/84 (103) 98 03/28/17 20:00 98.2 62 18 120/72 (88) 03/28/17 19:48 Room Air 03/28/17 16:19 98.3 59 20 117/71 (86) 97 03/28/17 12:00 98.1 55 20 122/78 (93) 97 03/28/17 08:45 Room Air 03/28/17 08:44 98.0 57 20 130/82 (98) 98 Result Diagram: 03/26/17 0500 03/28/17 0333 Laboratory Results Laboratory Tests Test 03/28/17 11:45 03/28/17 16:35 03/28/17 22:52 03/29/17 05:30 Serum Osmolality 294 MOSM/KG 291 MOSM/KG 293 MOSM/KG 295 MOSM/KG Administered Medications Medications (Trade) Dose Ordered Sig/Rebecca Route PRN Reason Start Time Stop Time Status Last Admin Dose Admin Miscellaneous Information 1 Q361D XX 03/22/17 14:15 03/22/17 16:54 Chlorhexidine Gluconate (Chlorhexidine 2% Cloth) Taper DAILY@04 TOP 03/23/17 04:00 03/19/18 03:59 03/27/17 01:17 Senna/Docusate Sodium (Melissa-Colace) 1 tab BID PO 03/22/17 21:00 03/28/17 09:11 Magnesium Hydroxide (Milk Of Magnesia Liq) 30 ml Q12H PRN PO Mild constipation 03/22/17 14:15 03/27/17 16:27 Lactulose (Lactulose Liq) 30 ml DAILY PRN PO SEVERE CONSITIPATION 03/22/17 14:15 03/28/17 18:13 Docusate Sodium (Colace) 100 mg BID PO 03/25/17 21:00 03/28/17 09:11 Pantoprazole Sodium (Protonix) 40 mg DAILY PO 03/26/17 09:00 03/28/17 09:11 Ondansetron HCl (Zofran Inj) 4 mg Q6H PRN IV PUSH NAUSEA OR VOMITING 03/25/17 09:30 03/27/17 13:15 Acetaminophen/ Hydrocodone Bitart ([place] 10-325 Mg) 1 tab Q4H PRN PO PAIN SCALE 1 TO 5 03/25/17 09:30 03/29/17 02:50 Acetaminophen/ Hydrocodone Bitart ([place] 10-325 Mg) 2 tab Q4H PRN PO PAIN SCALE 6 TO 10 03/25/17 09:30 03/26/17 04:22 Morphine Sulfate (Morphine Inj) 4 mg Q2H PRN IV PUSH PAIN SCALE 7 TO 10 03/25/17 09:30 03/26/17 04:14 Lisinopril (Prinivil) 10 mg DAILY PO 03/27/17 09:00 03/28/17 09:11 Sodium Chloride (NS Flush) 2 ml BID IV FLUSH 03/26/17 21:00 03/28/17 21:22 Levetriacetam (Keppra) 500 mg Q12H PO 03/27/17 11:00 03/28/17 23:53 Simethicone (Phazyme Chew) 125 mg TIDAC PO 03/28/17 12:00 03/28/17 18:16 Dexamethasone Sodium Phosphate (Decadron Inj) 3 mg Q6HR IV PUSH 03/28/17 18:00 03/29/17 06:21 Mannitol (Mannitol Inj) 12.5 gm Q12HR IV 03/28/17 21:00 03/28/17 21:22 Objective Remarks Gen: Middle-aged female, laying in bed, She appears to be no acute distress, she speaks in full sentences and is alert and oriented 3. She has dressing along the left side of the scalp, the dressing is clean no overt bleeding. HEENT: Status post craniotomy, surgical incision was not directly visualized due to presence of layers of clean bandage overlying it. RESP: Good air movement bilaterally without evidence of stridor, added breath sounds; rhonchi wheezes or rails. CVS: Regular rate and rhythm, S1 and S2 without added heart sounds specifically rubs or gallops. GI: Abdomen is thin, nondistended, nontender, no palpable hepatosplenomegaly positive bowel sounds. MUSCULOSKELETAL: Good muscle mass, tone and strength. No obvious tenderness or loss of range of motion. PROP ATTENDANT: Decreased vision and visual acuity in the right eye. Otherwise cranial nerves are intact. She has 5 x 5 motor strength of the upper and lower extremities of the extensor and flexor compartments. There is no sensory deficits appreciated. SKIN: Skin examination is nonfocal without evidence of oozes or petechiae. HEME/LYMPH: No lymphadenopathy noted in the cervical lymph node chains. No splenomegaly. Assessment/Plan Assessment Mr. Cloud is a 56-year-old female with a previous history of cardiac arrhythmia , status post pacemaker placement in the summer of 2016. The patient reports having symptoms of increasing left-sided headaches and blurry vision in her right eye, the symptoms had been progressive over the past 2 or 3 weeks. She presented to the emergency Department for further workup and management where imaging studies the brain revealed a 5.7 cm mass involving the left parieto- occipital lobe with resultant 7 mm midline shift from the left to the right. The lesion was surrounded by a significant amount of vasogenic edema. Imaging studies of the chest abdomen and pelvis indicate no evidence of an extracranial primary site. On 03/25/2017 she underwent craniotomy with excisional biopsy followed by maximal safe resection of the high-grade glioma, this was later confirmed to be glioblastoma multi-forming. Plan 1. New diagnosis of glioblastoma multi-forming involving the left parietal lobe of the brain: Status post craniotomy on 03/25/2017. The patient has been evaluated by radiation oncology for eventual radiation planning. I requested pathology to perform MGMT promoter methylation analysis. She will be an excellent candidate for concurrent chemoradiotherapy with Temodar when she is fully healed from surgery. I requested outpatient follow-up with myself in one to 2 weeks for treatment planning. I did explain the plan to the patient and her sisters. Sourav Calzada MD Mar 29, 2017 08:31
[2017-03-29] MEDS: LISINOPRIL 10 MG TAB PO SCH (09:13)
[2017-03-29] MEDS: SIMETHICONE 125 MG CHEWABLE TAB PO SCH (09:13)
[2017-03-29] MEDS: PANTOPRAZOLE SOD 40 MG DELAYED RELEASE TAB PO SCH (09:13)
[2017-03-29] MEDS: SODIUM CHLORIDE FLUSH BID IV FLUSH SCH (09:14)
[2017-03-29] MEDS: MANNITOL 12.5 GM/50 ML VIAL IV SCH (09:14)
[2017-03-29] MEDS: DOCUSATE SODIUM 50 MG/SENNA 8.6 MG TAB PO SCH (09:16)
[2017-03-29] MEDS: DOCUSATE SODIUM 100 MG CAP PO SCH (09:16)
[2017-03-29] MEDS ORDERED: SIME125 PO (09:50)
[2017-03-29] MEDS ORDERED: PANT40TA3 PO (09:50)
[2017-03-29] MEDS ORDERED: LISI10TA3 PO (09:50)
[2017-03-29] MEDS ORDERED: DEXA1TAB PO (09:50)
[2017-03-29] MEDS ORDERED: LEVE500 PO (09:50)
[2017-03-29] MEDS ORDERED: DOCU1CAP39 PO (09:50)
[2017-03-29] MEDS ORDERED: HYDR-3366 PO (09:51)
--- NOTE | 2017-03-29 09:52 | HHI.NSPN ---
Note Status Status: Progress Note Interval History Interval History Ms. Cloud is a 56-year-old female who was sent to [place] the ED for brain mass. Apparently she has had progressive worsening of headaches with associated nausea. She underwent a CT head at [facility] which shows a mass in the left parieto-occipital low to mid convexity region with moderate vasogenic edema extending into the high convexity frontal and parietal regions and anteriorly into the temporal region. There is moderate global mass effect present with significant effacement and displacement of left lateral ventricle and about 6 mm of subfalcine midline shift. Unfortunately she is unable to undergo an MRI study due to her pacemaker. She reports no prior history of known tumors or cancers and is quite healthy otherwise. 03/23: CT brain with contrast shows enhancing lesion within the left temporal occipital and posterior parietal region with vasogenic edema and 7 mm midline shift. Her primary care physician Dr. Robb had notified her pacemaker to be MRI compatible. 2: CT of body without any evidence of primary lesions. MRI Brain completed showed left occipital lobe intra-axial mass measuring 5.7 x 3.9 x 2.7 cm with considerable vasogenic edema and 7 mm of midline shift. 2/3: s/p debulking of brain mass yesterday. pt doing well, awake, moves all four extremities. 2/4: minimal drainage out of AI drains. ambulating with RW. headaches much better today. 03/28: Attempted to see the patient this morning during rounds but was down for fitting for radiation treatment 2: doing well, feels ready to go home Labs, Micro, & Vital Signs Results Date Time Temp Pulse Resp B/P (MAP) Pulse Ox O2 Delivery O2 Flow Rate FiO2 03/29/17 07:20 97.9 59 18 141/80 (100) 98 03/29/17 04:00 55 03/29/17 00:00 56 03/29/17 00:00 97.6 55 18 141/84 (103) 98 03/28/17 20:00 98.2 62 18 120/72 (88) 03/28/17 19:48 Room Air 03/28/17 16:19 98.3 59 20 117/71 (86) 97 03/28/17 12:00 98.1 55 20 122/78 (93) 97 Constitutional Vital Signs Date Time Temp Pulse Resp B/P (MAP) Pulse Ox O2 Delivery O2 Flow Rate FiO2 03/29/17 07:20 97.9 59 18 141/80 (100) 98 03/29/17 04:00 55 03/29/17 00:00 56 03/29/17 00:00 97.6 55 18 141/84 (103) 98 03/28/17 20:00 98.2 62 18 120/72 (88) 03/28/17 19:48 Room Air 03/28/17 16:19 98.3 59 20 117/71 (86) 97 03/28/17 12:00 98.1 55 20 122/78 (93) 97 Physical Exam Awake alert, conversing Surgical wound healing well with clean headwrap in place Medications Current Medications Current Medications Medications (Trade) Dose Ordered Sig/Rebecca Route PRN Reason Start Time Stop Time Status Last Admin Dose Admin Zolpidem Tartrate (Ambien) 5 mg HS PRN PO INSOMNIA 03/22/17 14:15 Albuterol/ Ipratropium (Duoneb Neb) 1 ampule Q2HR NEB PRN INH WHEEZING 03/22/17 14:15 Miscellaneous Information 1 Q361D XX 03/22/17 14:15 03/22/17 16:54 Chlorhexidine Gluconate (Chlorhexidine 2% Cloth) Taper DAILY@04 TOP 03/23/17 04:00 03/19/18 03:59 03/27/17 01:17 Chlorhexidine Gluconate (Chlorhexidine 2% Cloth) 3 pack UNSCH PRN TOP HYGIENIC CARE 03/22/17 14:15 Senna/Docusate Sodium (Melissa-Colace) 1 tab BID PO 03/22/17 21:00 03/28/17 09:11 Magnesium Hydroxide (Milk Of Magnesia Liq) 30 ml Q12H PRN PO Mild constipation 03/22/17 14:15 03/27/17 16:27 Sennosides (Senokot) 17.2 mg Q12H PRN PO Moderate constipation 03/22/17 14:15 Lactulose (Lactulose Liq) 30 ml DAILY PRN PO SEVERE CONSITIPATION 03/22/17 14:15 03/28/17 18:13 Cefazolin Sodium/ Dextrose 50 ml @ 150 mls/hr ANIMAL ASSISTANT IV 03/24/17 06:00 Bisacodyl (Dulcolax Supp) 10 mg DAILY PRN RECTAL CONSTIPATION 03/25/17 09:30 Docusate Sodium (Colace) 100 mg BID PO 03/25/17 21:00 03/28/17 09:11 Pantoprazole Sodium (Protonix) 40 mg DAILY PO 03/26/17 09:00 03/29/17 09:13 Ondansetron HCl (Zofran Inj) 4 mg Q6H PRN IV PUSH NAUSEA OR VOMITING 03/25/17 09:30 03/27/17 13:15 Calcium Gluconate (Calcium Gluconate Inj) 1 gm UNSCH PRN IV SEE LABEL COMMENTS 03/25/17 09:30 Magnesium Sulfate 4 gm/Sodium Chloride 108 ml @ 108 mls/hr UNSCH PRN IV MAGNESIUM LESS THAN 2 03/25/17 09:30 Acetaminophen/ Hydrocodone Bitart ([place] 10-325 Mg) 1 tab Q4H PRN PO PAIN SCALE 1 TO 5 03/25/17 09:30 03/29/17 09:13 Acetaminophen/ Hydrocodone Bitart ([place] 10-325 Mg) 2 tab Q4H PRN PO PAIN SCALE 6 TO 10 03/25/17 09:30 03/26/17 04:22 Morphine Sulfate (Morphine Inj) 4 mg Q2H PRN IV PUSH PAIN SCALE 7 TO 10 03/25/17 09:30 03/26/17 04:14 Acetaminophen (Tylenol) 650 mg Q4H PRN PO TEMPERATURE > 101.5 F 03/25/17 09:30 Morphine Sulfate (Morphine Inj) 2 mg Q2H PRN IV PUSH PAIN SCALE 1 TO 6 03/25/17 10:00 Lisinopril (Prinivil) 10 mg DAILY PO 03/27/17 09:00 03/29/17 09:13 Sodium Chloride (NS Flush) 2 ml BID IV FLUSH 03/26/17 21:00 03/29/17 09:14 Sodium Chloride (NS Flush) 2 ml UNSCH PRN IV FLUSH FLUSH AFTER USING IV ACCESS 03/26/17 17:00 Clonidine (Catapres) 0.1 mg Q6H PRN PO SYS BP GREATER THAN 160 MMHG 03/26/17 17:45 Al Hydrox/Mg Hydrox/Simethicone (Mag-Al Plus Susp Liq) 30 ml QID PRN PO HEARTBURN 03/26/17 19:30 Levetriacetam (Keppra) 500 mg Q12H PO 03/27/17 11:00 03/28/17 23:53 Simethicone (Phazyme Chew) 125 mg TIDAC PO 03/28/17 12:00 03/29/17 09:13 Dexamethasone Sodium Phosphate (Decadron Inj) 3 mg Q6HR IV PUSH 03/28/17 18:00 03/29/17 06:21 Mannitol (Mannitol Inj) 12.5 gm Q12HR IV 03/28/17 21:00 03/29/17 09:14 Medical Decision Making MDM Remarks 56-year-old female with progressive headaches, MRI Brain shows left occipital lobe intra-axial mass measuring 5.7 x 3.9 x 2.7 cm with considerable vasogenic edema and 7 mm of midline shift s/p craniotomy for debulking of brain mass 03/25/17, frozen section cw high grade glioma Plan Plan Remarks dc Mannitol cont slow Decadron wean final pathology pending cont therapy ok to dc from NRS standpoint, f/u 04/05 in office for staple removal Follow-up with oncology and radiation oncology Kacy Vargas Mar 29, 2017 09:52
--- NOTE | 2017-03-29 09:54 | HHI.DCPOC ---
Discharge Care Plan Diagnosis: (1) Glioma of brain Goals to Promote Your Health * To prevent worsening of your condition and complications * To maintain your health at the optimal level Directions to Meet Your Goals Take your medications as prescribed Follow your dietary instruction Follow activity as directed Keep your appointments as scheduled Take your immunizations and boosters as scheduled If your symptoms worsen call your PCP, if no PCP go to Urgent Care Center or Emergency Room Smoking is Dangerous to Your Health. Avoid second hand smoke Call the 24-hour hour crisis hotline for domestic abuse at Juan Ramon Lopez MD Mar 29, 2017 09:54
--- NOTE | 2017-03-29 09:55 | HHI.FF ---
Face to Face Verification Diagnosis: (1) Glioma of brain Physical Therapy Order: Evaluate and Treat, Improve ambulation Occupational Therapy Order: Evaluate and Treat, Improve ADL Home Health Nursing Order: Medical education Signs/symptoms of disease process Medication education-adverse effect Nursing assessment with vital signs I have seen patient Adina Cloud on 03/29/17. My clinical findings support the need for the requested home health care services because: Limited ability to care for self Need for psychosocial assistance I certify that my clinical findings support that this patient is homebound because: Unsteady gait/balance Need for psychosocial assistance Juan Ramon Lopez MD Mar 29, 2017 09:55
--- NOTE | 2017-03-29 10:02 | HHI.DS ---
Discharge Summary Admission Date Mar 22, 2017 at 14:11 Discharge Date: Mar 29, 2017 Admitting Diagnosis intracranial mass (1) Glioma of brain Diagnosis: Principal ICD Codes: C71.9 - Malignant neoplasm of brain, unspecified CBC/BMP: 03/26/17 0500 03/28/17 0333 Significant Findings Laboratory Tests Test 03/26/17 11:00 03/26/17 17:00 03/26/17 22:27 03/27/17 06:11 Serum Osmolality 297 MOSM/KG (275-295) 296 MOSM/KG (275-295) 302 MOSM/KG (275-295) 302 MOSM/KG (275-295) Test 03/27/17 11:32 03/27/17 19:30 03/28/17 01:58 03/28/17 03:33 Serum Osmolality 302 MOSM/KG (275-295) 306 MOSM/KG (275-295) 304 MOSM/KG (275-295) 304 MOSM/KG (275-295) Blood Urea Nitrogen 25 MG/DL (7-18) Random Glucose 119 MG/DL (74-106) Estimat Glomerular Filtration Rate 83 ML/MIN (>89) Test 03/28/17 11:45 03/28/17 16:35 03/28/17 22:52 03/29/17 05:30 Hospital Course Ms. Cloud is a 56-year-old female who was sent to [place] the ED for brain mass. She has had progressive worsening of headaches with associated nausea. She underwent a CT head at [facility] which shows a mass in the left parieto-occipital low to mid convexity region with moderate vasogenic edema extending into the high convexity frontal and parietal regions and anteriorly into the temporal region. There is moderate global mass effect present with significant effacement and displacement of left lateral ventricle and about 6 mm of subfalcine midline shift. On 03/25 She underwent craniotomy and mass resection with Dr Winston. She was no decadron and keppra emperically. Mannitol was slowly tapered. Path shows high grade glioma. She was seen by radiation onc dr Daugherty and had ct simulation. Seen by Dr Calzada med onc and he will f/u in office 2 weeks and begin oral chemo in about 3-4 weeks probably tamodar. Will go home with pt/ot and hhc. f/u nsg for staple removal. long decadron taper written per my discussion with dr Winston. Pt Condition on Discharge: Stable Discharge Disposition: Disch w/ Home Health Serv Discharge Instructions DIET: Follow Instructions for: As Tolerated, No Restrictions Activities you can perform: Regular-No Restrictions Follow up Referrals: Neurosurgery @ [facility]surgical - Dr Winston with Kacy Vargas Oncology - 2 Weeks with Sourav Calzada Oncology - 2 Weeks with Elia Daugherty PCP Follow-up - 1 Week with Cezar New Medications: Dexamethasone (Dexamethasone) 1 Mg Tab 1 MG PO DIRECTED for swelling for 22 Days, TAB 0 Refills 3mg po qid x 3 days, 2mg po qid x 4 days, 2mg po bid x 4 days, 1mg po bid x 4 days, 1mg po daily x 7 days Hydrocodone-Acetaminophen ([place]) 10-325 Mg Tab 1 TAB PO Q4H PRN for PAIN, #30 TAB 0 Refills Docusate Sodium (Dok) 100 Mg Cap 100 MG PO BID for Constipation for 30 Days, #60 CAP Levetiracetam (Keppra) 500 Mg Tab 500 MG PO Q12H for Seizure Control, #60 TAB 3 Refills Lisinopril (Lisinopril) 10 Mg Tab 10 MG PO DAILY for blood pressure, #30 TAB 3 Refills Pantoprazole (Pantoprazole) 40 Mg Tab 40 MG PO DAILY for gerd, #30 TAB 3 Refills Simethicone (Gas Relief Extra Strength) 125 Mg Chw 125 MG PO TIDAC for gas/bloating for 30 Days, Juan Ramon Christine MD Mar 29, 2017 10:01
[2017-03-29] MEDS ORDERED: COMMODE 3-IN-11 MIS (10:06)
[2017-03-29] MEDS ORDERED: WALKER WHEELS/F1 MIS (10:06)
[2017-03-29] MEDS ORDERED: HOSP BED2 (10:06)
[2017-03-29 11:47] VITALS: O2SAT 96
[2017-03-29 12:33] VITALS: BP 125/82; PULSE 58; RESP 20; TEMP 98.2; O2SAT 98
== END 2017-03-29 13:17 | disposition home health service (06) | DRG 25 ==
LOC: NEPC 11:58 → NEDH 14:11 → N03B 16:28 → N05B 03-27 17:29
PROVIDERS: ADMIT Hospitalist; ATTEND Hospitalist
PROC: 00B70ZZ Excision of Cerebral Hemisphere, Open Approach (ICD-10-PCS; principal; 2017-03-25 08:34)
DX: C71.2 Malignant neoplasm of temporal lobe (principal); G93.6 Cerebral edema; G93.5 Compression of brain; R11.0 Nausea; R12 Heartburn; H53.141 Visual discomfort, right eye; H53.8 Other visual disturbances; Z72.0 Tobacco use; Z95.0 Presence of cardiac pacemaker
CPT/HCPCS: 70450; 70460; 70553; 71045; 71260; 74177; 77263; 77334; 80048; 80053; 83735; 83930; 84100; 85025; 85610; 86850; 86900; 86901; 87641; 88307; 88331; 93005; 94150; 96374; 99221; A9579; C1713; C9113; J0690; J1100; J1580; J1940; J1953; J2150; J2175; J2270; J2370; J2405; J2550; J3010; J3480; J7040; J7050; Q9963; Q9967

== ENCOUNTER → 2017-07-14 | Outpatient (CLI) | payer OTHER ==
[~2017-07-14] MED LIST: COMMODE 3-IN-11 MIS; DEXA1TAB PO; DOCU1CAP39 PO; GADODIAMIDE PF 287 MG/ML 20 ML VIAL (for RAD MRI) IVCONTRAST ONE; HOSP BED2; HYDR-3366 PO; LEVE500 PO; LISI10TA3 PO; PANT40TA3 PO; SIME125 PO; WALKER WHEELS/F1 MIS
--- NOTE | 2017-07-15 10:01 | RADRPT ---
EXAM DATE: 07/14/2017 4:41 PM EDT AGE/SEX: 56 years / Female INDICATIONS: Mass. Head pain due to possible GBM. CLINICAL DATA: This is the patient's initial encounter. Patient reports that signs and symptoms have been present for 1 day and indicates a pain score of 1/10. MEDICAL/SURGICAL HISTORY: . Glioblastoma. Pacemaker. Medtronic pacemaker, Brain sx. COMPARISON: [facility] – [place], MRI BRAIN W & W/O CONTRAST, 06/30/2017. . TECHNIQUE: Whole brain MRI perfusion was performed with 20 ml Omniscan (gadodiamide) contrast as a s fatimah exam dose. Parametric maps generated included time to peak, mean transit time, cerebral blood volume and cerebral blood flow. FINDINGS: Parametric cerebral perfusion is correlated with recent MRI performed on 06/30. The large enhancing le joey within the left temporal, occipital and parietal lobes demonstrates marginal increased blood vol ume in the occipital region which corresponds to an area of low ADC. The majority of the parietal and temporal components of the lesion failed to reveal any significant increase in blood volume characte ristic of radionecrosis. CONCLUSION: 1. 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 2. Marginal increased blood volume within the occipital component of the large left cerebral lesion is highly suspicious for recurrent or persistent neoplasm. Electronically signed by: Abihshek Cortés MD 07/15/2017 10:00 AM EDT
== END ==
LOC: HRAD 14:56
PROVIDERS: ATTEND Internal Medicine Nephrology
DX: C71.9 Malignant neoplasm of brain, unspecified (principal)
CPT/HCPCS: 70552; A9579